=== PATIENT | male | born 2000 | race Caucasian/White ===

== ENCOUNTER 2023-02-02 10:47 | Emergency (ER) | payer OTHER, SELFPAY ==
--- NOTE | ~2023-02-02 | US_ITS ---
EXAMINATION: ULTRASOUND SCROTUM AND DOPPLER. US CLINICAL INFORMATION: Pain and swelling. COMPARISON: None available. TECHNIQUE: A sonogram of the scrotum was performed assessing saleh-scale appearance and color Doppler flow. Spectral Doppler analysis of the arterial and venous flow were performed in the testes bilaterally. FINDINGS: RIGHT: Right testicle measures 5.0 x 2.1 x 3.0 cm, volume 16.4 mL. No focal testicular parenchymal lesions are visualized. However there are small echogenic clustered calcifications in mid and lower pole. Spectral Doppler analysis of the arterial and venous flow is normal in the right testis. Right epididymal head is normal in size. No right hydrocele or varicocele is seen. Right epididymal Doppler flow is . LEFT: Left testicle measures 5.1 x 2.3 x 3.2 cm, volume 19.6 mL. No focal testicular parenchymal lesions are visualized. Spectral Doppler analysis of the arterial and venous flow is normal in the left testis. Left epididymal head is normal in size. No left hydrocele or varicocele is seen. Left epididymal Doppler flow is normal. There are several anechoic cysts. The largest anechoic cyst measures 0.3 x 0.3 x 0.3 cm. In left epididymal head. The largest measures US/US scrotum IMPRESSION: Microlithiasis right testes. Multiple small cyst left epididymal head with largest measuring 0.3 cm. Normal flow seen to both testes and epididymides on Doppler exam.
--- NOTE | ~2023-02-02 | US_ITS ---
EXAMINATION: ULTRASOUND SCROTUM AND DOPPLER. US CLINICAL INFORMATION: Pain and swelling. COMPARISON: None available. TECHNIQUE: A sonogram of the scrotum was performed assessing saleh-scale appearance and color Doppler flow. Spectral Doppler analysis of the arterial and venous flow were performed in the testes bilaterally. FINDINGS: RIGHT: Right testicle measures 5.0 x 2.1 x 3.0 cm, volume 16.4 mL. No focal testicular parenchymal lesions are visualized. However there are small echogenic clustered calcifications in mid and lower pole. Spectral Doppler analysis of the arterial and venous flow is normal in the right testis. Right epididymal head is normal in size. No right hydrocele or varicocele is seen. Right epididymal Doppler flow is . LEFT: Left testicle measures 5.1 x 2.3 x 3.2 cm, volume 19.6 mL. No focal testicular parenchymal lesions are visualized. Spectral Doppler analysis of the arterial and venous flow is normal in the left testis. Left epididymal head is normal in size. No left hydrocele or varicocele is seen. Left epididymal Doppler flow is normal. There are several anechoic cysts. The largest anechoic cyst measures 0.3 x 0.3 x 0.3 cm. In left epididymal head. The largest measures US/US scrotum doppler IMPRESSION: Microlithiasis right testes. Multiple small cyst left epididymal head with largest measuring 0.3 cm. Normal flow seen to both testes and epididymides on Doppler exam.
[2023-02-02 10:56] VITALS: BP 155/93; PULSE 92; RESP 20; TEMP 37.1; O2SAT 98; BMI 33.9
[2023-02-02 12:43] LABS: Appearance Urine Clear; Color Urine Yellow; Glucose Urine UA Negative (Negative); Leukocyte Esterase Urine Negative (Negative); Nitrite Urine Negative (Negative); PH 5.5 (5.0-9.0); Urine Blood Negative (Negative); Urine Ketones Negative (Negative); Urine Protein Negative (Neg-Trace)
--- NOTE | 2023-02-02 13:04 | ED_ITS ---
HPI - Male Genitourinary General Chief complaint: Urogenital-Male Stated complaint: Swollen Private Area Time Seen by Provider: 02/02/23 12:14 Source: patient Mode of arrival: ambulatory Limitations: no limitations History of Present Illness HPI Narrative: 22-year-old male with no significant pmhx presents to the ED today with a complaint of swelling to his left testicle x1 mo. Reports an episode of testicular swelling that occurred 1 mo ago. This lasted for approximately a day before resolving on its own. 4 days ago his left testicle began to swell again, this time it has not resolved. Denies redness or pain. Denies penile discharge or ulcers. Denies trauma or injury to the area. Patient is uncircumcised. Denies fever, chills, nausea, vomiting, abdominal pain, dysuria, hematuria. Admits he is sexually active. Denies concern for sexually transmitted infections. Related Data Allergies Allergy/AdvReac Type Severity Reaction Status Date / Time No Known Allergies Allergy Unverified 11/06/19 17:00 Review of Systems Review of Systems: Constitutional: No fever, chills, fatigue, night sweats, weight changes ENT/Mouth: No ear pain, hearing loss, nasal congestion, sinus pain, rhinorrhea, sore throat Eyes: No eye pain, swelling, redness, vision changes, discharge Cardio: No chest pain, palpitations, AMEZQUITA, orthopnea, peripheral edema Pulm: No SOB, cough, sputum, wheezing, dyspnea, hemoptysis GI: No nausea, vomiting, hematemesis, abdominal pain, diarrhea, constipation, hematochezia, melena : No irregular bleeding, dysuria, frequency, urgency, hesitancy, hematuria, flank pain, urinary flow changes, urinary incontinence or retention, + left testicle swelling MSK: No back pain, neck pain, joint pain, myalgias Skin: No lesions, rashes Neuro: No weakness, numbness, paresthesias, LOC, dizziness, headache All other systems reviewed and are negative. [facility] Past Medical History Attestation statement: The following information was validated with the patient. Source: old records reviewed and nursing notes reviewed Social History Social History Advance Directives: No Advance Directives Information Provided: No Physical Exam Vital Signs: Vital Signs: Last Vital Signs Temp 98.8 F 02/02/23 10:56 Pulse 92 02/02/23 10:56 Resp 20 02/02/23 10:56 BP 155/93 H 02/02/23 10:56 Pulse Ox 98 02/02/23 10:56 O2 Del Method Room Air 02/02/23 10:56 BMI result Body Mass Index 33.9 Vital signs stable, afebrile Const: General: cooperative, healthy appearing, comfortable, no acute distress, alert and awake Orientation/consciousness: patient oriented x3 Limitations: no limitations HEENT: Head: Yes normal to inspection Eyes: General: appearance normal, both eyes and all related structures Conjunctivae: conjunctivae normal Sclerae: sclerae normal Pupils: Equal, round and reactive pupils present Neck: Neck: Yes normal visual inspection and Yes no lymphadenopathy Resp: Effort & Inspection: normal respiratory effort Auscultation: clear to auscultation bilaterally Cardio: Rate: regular rate Rhythm: regular rhythm Peripheral pulses: radial pulses present, posterior tibial pulses present and dorsalis pedis present GI: Inspection: Yes normal to inspection Palpation (GI): Soft to palpation, nontender, no guarding and no hernias Auscultation: normal bowel sounds : Other: Sandra central processing technician in room to guide escort. + uncircumcised penis. Able to easily r etract foreskin. Meatus normal. Both testes present, normal testicular lie. No testicular swelling, redness. No testicular tenderness to palpation. No epididymal tenderness. normal cremasteric reflex. General: Yes no CVA tenderness Back/Spine/Pelvis: Back: no CVA tenderness Skin: General skin exam: no rashes or lesions noted Neuro: General: patient oriented x3, gait normal and moves all extremities Cranial nerves: Yes CN's II-XII intact bilaterally and Yes Equal, round and reactive pupils present Extrem: General: Yes normal to inspection and Yes full ROM Course Course Course Narrative: 1327-- UTI negative for infection. Scrotal ultrasound showing microlithiasis of the right testy along with multiple small cysts to the left epididymal head with largest measuring 0.3 cm. There is normal flow seen to both testes and epididymides. Will consult urologist, Dr. Monk for recommendation. 1337-- Discussed imaging results with Dr. Monk who recommends out patient follow up in 6-8 weeks. Informed patient of urine and ultra sound results. Informed him that he needs to follow up with urology in 1-2 months. He expresses understanding. Referral will be provided. Continues to deny pain. Patient has r emained stable throughout ED visit today. Discussed strict return precautions. All questions answered at this time. Patient is agreeable with disposition and stable for discharge. Medical Decision Making Medical Decision Making [facility] Narrative: 22-year-old male with no significant pmhx presents to the ED today with a complaint of swelling to his left testicle x1 mo. VSS. Afebrile. On exam, uncircumcised penis. Able to easily retract foreskin. Meatus normal. Both testes present, normal testicular lie. No testicular swelling, redness. No testicular tenderness to palpation. No epididymal tenderness. Normal cremasteric reflex. Abd soft, nt/nd. No palable hernia. No LAD. 2+ femoral pulses. Clinical concern for std vs uti vs epididymitis vs hydrocele. Unlikely varicocele, orchitis, testicular torsion, carcinoma. plan for scrotal US, UA and re-evaluation. Differential Diagnosis Differential Diagnoses: The differential diagnosis associated with the presentation includes as above. Admission/Observation Not indicated. Consult Healthcare Provider Management of the patient was discussed with: Manager Of Tires Sales (urologist, Dr. Monk) Lab Data [facility] Lab Attestation statement: I reviewed the patient's lab results. as above. Labs: Lab Results 02/02/23 Range/Units 12:20 Urine Color Yellow Urine Appearance Clear Urine pH 5.5 (5.0-9.0) Ur Specific [place] 1.010 (1.005-1.025) Urine Protein Negative (Neg-Trace) mg/dL Urine Glucose (UA) Negative (Negative) mg/dL Urine Ketones Negative (Negative) mg/dL Urine Blood Negative (Negative) Urine Nitrite Negative (Negative) Ur Leukocyte Esterase Negative (Negative) Chlam trachomat DNA PCR NOT DETECTED (Not Detect.) N.gonorrhoeae DNA (PCR) NOT DETECTED (Not Detect.) Independent Interpretation I performed an independent interpretation of an: Ultrasound Interpretation: US scrotum with normal flow to both testes, agree with radiologist's interpretation. Radiology Impression Discussion of test interpretation with radiology: I have reviewed the radiologist's reading. Radiologist Impression: US scrotum IMPRESSION: Microlithiasis right testes. Multiple small cyst left epididymal head with largest measuring 0.3 cm Normal flow seen to both testes and epididymides on Doppler exam. External Record Review External record reviewed: Inpatient record Critical Care Time Critical Care Time Critical Care Time: No Discharge Plan Discharge Clinical Impression: Testicular microlithiasis, Cyst of epididymis Patient Disposition: Home, Self-Care Instructions: Testicle Pain (ED), Scrotal Pain (ED) Additional Instructions: Your urine was negative for infection. You tested negative for gonorrhea and chlamydia. The ultrasound of your testicles shows small calcium deposits within the right testes, known as microlithiasis. It also shows small cysts measuring approximately 0.3 cm on the epididymis within the left testicle. Recommendation is to wear tight briefs to compress the testicles and help with swelling. You have also been provided with a referral to Urology to follow up with regarding your ultrasound findings. CALL THEM TO MAKE AN APPOINTMENT. THEY WILL NOT CALL YOU. If symptoms persist or worsen, please return to the emergency department. In the case of an emergency call 911. Referrals: [facility] [Provider Group] - 5 days Stand Alone Forms: Work/School Release Interventions: ED Discharge Assessment Last Done: 02/02/23 14:32 Discharge Date/Time: 02/02/23 14:32
[2023-02-02 14:00] LABS: CT PCR NOT DETECTED (Not Detect.); NG PCR NOT DETECTED (Not Detect.)
== END 2023-02-02 14:32 | disposition home or self-care (01) ==
PROVIDERS: Physician Assistant Medical; Emergency Provider Emergency Medicine Emergency Medical Services
DX: N50.3 Cyst of epididymis (principal); N50.812 Left testicular pain; N50.89 Other specified disorders of the male genital organs; R10.2 Pelvic and perineal pain; Z79.899 Other long term (current) drug therapy
CPT/HCPCS: 0353U; 76870; 81003; 93975; 99282; 99284

== ENCOUNTER 2023-03-23 15:14 | Outpatient (AMB) | payer OTHER, SELFPAY ==
--- NOTE | 2023-03-23 15:16 | A.OFFVIS_ITS ---
Intake Intake Visit Reasons: epididymal cyst Intake Note: New Patient presents for initial visit for ER follow up Epididymal Cyst Urology Medications: none Blood Thinner: none Business Account Specialist Required: No Accompanied by: Self / Same As Patient Allergies No Known Allergies Allergy (Unverified 03/23/23 15:20) HPI HPI Comments History of Present Illness Details Joaquin is a very pleasant 22-year-old male patient. He presents to the office today as a new patient for epididymal cysts. In discussion with the patient today he reports feeling an abnormal mass within the left side of his scrotum that has been intermittent over the last few months. He reports currently he does not feel this abnormality anymore and was going to cancel the appointment but wanted to make sure everything was okay. In review of patient's chart it appears scrotal ultrasound was ordered and performed. These results were reviewed with the patient today. Microlithiasis right testes. Multiple small cyst left epididymal head with largest measuring 0.3 cm. Normal flow seen to both testes and epididymides on Doppler exam. Patient declines physical assessment today as he feels abnormality has since subsided. He denies pain, trauma, or injury to the area. He endorses being sexually active however, denies concern for sexually transmitted infections. Discussed at length potential causes for multiple small cyst noted to the epididymal head on imaging. When asked he currently denies any bothersome urinary issues or concerns. He denies urinary urgency, urinary frequency, incontinence, nocturia, hematuria, dysuria, foul smelling urine, changes to urinary stream, flank pain, fever, and or chills. He is happy with his current voiding parameters. Review of Systems Const All systems reviewed & are unremarkable except as noted in HPI and below Physical Exam Const General: cooperative, healthy appearing, comfortable, no acute distress, well developed, alert and awake Orientation/consciousness: patient oriented x3 Limitations: no limitations HEENT Head: Yes normal to inspection, Yes normocephalic and Yes atraumatic Ears: hearing grossly normal bilaterally Eyes General: appearance normal, both eyes and all related structures Neck Neck: Yes normal visual inspection and Yes trachea midline Chest Chest palpation & inspection: normal inspection of the chest Resp Effort & Inspection: normal respiratory effort and able to speak in complete sentences Cardio Rate: regular rate GI Inspection: Yes normal to inspection General: Yes deferred Skin General skin exam: no rashes or lesions noted Neuro General: patient oriented x3 Extrem General: Yes normal to inspection Psych Appearance: grossly normal and well kempt Mental Status: mental status grossly normal Speech and movement: Normal speech and movement present and Clear speech present Affect: normal affect Attitude: cooperative Thought process: Normal thought process present Thought content: Normal thought content present Insight: Fair insight present (Psych) Judgement: Fair judgement present (Psych) Results AMB Urinalysis, Automated UA Leukoctes 0 Olaf/uL Last Edit by [employer] on 03/23/23 15:47 UA Nitrite Negative Last Edit by Everlaw on 03/23/23 15:47 UA Urobilinogen 0.2 mg/dL Last Edit by Everlaw on 03/23/23 15:47 UA Protein 0 mg/dL Last Edit by Everlaw on 03/23/23 15:47 UA pH 6.0 Last Edit by [employer] on 03/23/23 15:47 UA Blood 0 Humberto/uL Last Edit by Everlaw on 03/23/23 15:47 UA Specific [place] 1.020 Last Edit by Everlaw on 03/23/23 15:47 UA Ketone Negative Last Edit by Everlaw on 03/23/23 15:47 UA Bilirubin 0 mg/dL Last Edit by Everlaw on 03/23/23 15:47 UA Glucose 0 mg/dL Last Edit by [employer] on 03/23/23 15:47 Results Reviewed Results Reviewed: Laboratory Last Values Urine pH (Auto) 6.0 03/23/23 15:21 Specific [place] (Auto) 1.020 03/23/23 15:21 Urine Protein (Auto) 0 mg/dL 03/23/23 15:21 Glucose (UA)(Auto) 0 mg/dL 03/23/23 15:21 Urine Ketones (Auto) Negative 03/23/23 15:21 Urine Blood (Auto) 0 Humberto/uL 03/23/23 15:21 Urine Nitrite (Auto) Negative 03/23/23 15:21 Urine Bilirubin (Auto) 0 mg/dL 03/23/23 15:21 Urine Urobilinogen (Auto) 0.2 mg/dL 03/23/23 15:21 Leukocyte Esterase (Auto) 0 Olaf/uL 03/23/23 15:21 Date of Service: 02/02/23 EXAMINATION: ULTRASOUND SCROTUM AND DOPPLER. FINDINGS: RIGHT: Right testicle measures 5.0 x 2.1 x 3.0 cm, volume 16.4 mL. No focal testicular parenchymal lesions are visualized. However there are small echogenic clustered calcifications in mid and lower pole. Spectral Doppler analysis of the arterial and venous flow is normal in the right testis. Right epididymal head is normal in size. No right hydrocele or varicocele is seen. Right epididymal Doppler flow is . LEFT: Left testicle measures 5.1 x 2.3 x 3.2 cm, volume 19.6 mL. No focal testicular parenchymal lesions are visualized. Spectral Doppler analysis of the arterial and venous flow is normal in the left testis. Left epididymal head is normal in size. No left hydrocele or varicocele is seen. Left epididymal Doppler flow is normal. There are several anechoic cysts. The largest anechoic cyst measures 0.3 x 0.3 x 0.3 cm. In left epididymal head. The largest measures IMPRESSION: Microlithiasis right testes. Multiple small cyst left epididymal head with largest measuring 0.3 cm. Normal flow seen to both testes and epididymides on Doppler exam. Assessment & Plan Assessment & Plan (1) Cyst of epididymis: Code(s): N50.3 - Cyst of epididymis Plan In office urinalysis results reviewed with the patient today; as noted above. Recent scrotal ultrasound results reviewed with the patient today. Reassurance provided. Discussed at length potential causes of epididymal head cysts. Patient denies any bothersome urinary issues or concerns. Will obtain scrotal ultrasound in 6 months for surveillance monitoring. Follow-up in 6 months with imaging to be completed prior; or sooner with any issues, concerns, and or questions. Orders: Orders AMB Urinalysis Automated Today Z13.9 - Encounter for screening, unspecified US scrotum 6 Months N50.3 - Cyst of epididymis Patient Instructions: The patient had an opportunity to ask questions regarding the treatment plan. All questions were answered. Physical exam, labs, and imaging were discussed and reviewed in detail. As well as risks, benefits, and discussion of treatment choices. No major barriers to understanding were identified. The patient expressed understanding and agreement with the above treatment plan. The patient was made aware they should contact our office by phone for worsening of their current condition, the appearance of new symptoms, or with any questions or concerns. Compliance is encouraged with any medications and follow up testing that is ordered. It is a privilege to be allowed the opportunity to participate in? your urological care.? Again, if you have any questions or concerns If you have any questions or concerns please do not hesitate to contact me. The office is [phone]. This note is constructed using voice recognition software. While every effort has been made to ensure accuracy physician allergist immunologist errors may have been included. Yours sincerely, KENNY Rodriguez Coding Level of Care Code New Pt Level 3 (47001) Diagnoses Cyst of epididymis N50.3
== END 2023-03-23 15:58 | disposition home or self-care (01) ==
PROVIDERS: Visit Provider Nurse Practitioner Family
DX: N50.3 Cyst of epididymis (principal)
CPT/HCPCS: 99203

== ENCOUNTER → 2023-03-23 15:14 | Outpatient (BNVA) | payer OTHER, SELFPAY | PROVIDERS: Visit Provider Nurse Practitioner Family | DX: N50.3 Cyst of epididymis (principal) | CPT/HCPCS: 81003 ==

== ENCOUNTER 2023-09-10 12:29 | Outpatient (REF) | payer OTHER, SELFPAY ==
--- NOTE | ~2023-09-10 | US_ITS ---
EXAMINATION: US SCROTUM CLINICAL INFORMATION: Cyst of epididymis. COMPARISON: Ultrasound scrotum 02/02/2023. TECHNIQUE: A sonogram of the scrotum was performed assessing saleh-scale appearance and color Doppler flow. Spectral Doppler analysis of the arterial and venous flow were performed in the testes bilaterally. FINDINGS: RIGHT: Right testicle measures 4.9 x 2.1 x 3.2 cm, volume 17.4 mL. Few scattered calcifications. Spectral Doppler analysis of the arterial and venous flow is normal in the right testis. Right epididymal head is normal in size. Small epididymal head cyst measuring 0.3 x 0.3 x 0.4 cm. No right hydrocele or varicocele is seen. Right epididymal Doppler flow is normal. LEFT: Left testicle measures 4.8 x 2.6 x 2.9 cm, volume 19.2 mL. Spectral Doppler analysis of the arterial and venous flow is normal in the left testis. Left epididymal head is normal in size. Small epididymal head cyst measures 0.3 x 0.2 x 0.2 cm. Small hydrocele the lower pole with septation. Left epididymal Doppler flow is normal. US/US scrotum IMPRESSION: 1. No evidence of testicular torsion. 2. Stable size of bilateral epididymal head cyst measuring up to 0.3 cm. 3. Stable microliths of right testicle. 4. New small hydrocele on the left lower pole.
== END 2023-09-10 12:30 | disposition home or self-care (01) ==
LOC: HO.US 12:29
PROVIDERS: Visit Provider Nurse Practitioner Family
DX: N50.3 Cyst of epididymis (principal)
CPT/HCPCS: 76870

== ENCOUNTER 2023-09-21 13:27 | Outpatient (AMB) | payer OTHER, SELFPAY ==
--- NOTE | 2023-09-21 13:31 | MHC.OFFVIS ---
Intake Visit Reasons: 6m/US(set) Intake Note: Patient presents to the office today for a 6m/US Urology Medications: none Blood Thinner: none Tenter Feeder Required: No Accompanied by: Self / Same As Patient Allergies No Known Allergies Allergy (Unverified 09/21/23 13:31) HPI Comments Details: Joaquin is a very pleasant 22-year-old male patient. He presents to the office today for follow-up. Of note, patient was seen approximately 6 months ago as a new patient for epididymal cysts at which time plan was to continue with surveillance monitoring of epididymal cysts. Recent scrotal ultrasound results reviewed with the patient today. No evidence of testicular torsion, stable size of bilateral epididymal head cysts measuring up to 0.3 cm. Stable microliths of right testicle, new small hydrocele of the left lower pole. In discussion with the patient today he reports to be doing and feeling well. He reports performing self exams in does not feel there has been any changes since his last office visit here. Patient again declines physical assessment today. Offered male provider however he continues to decline. He discusses feeling no bothersome urinary issues or concerns. He denies pain, trauma, or injury to the area. He endorses being sexually active however, denies concern for sexually transmitted infections. Discussed at length potential causes for cysts in complex hydroceles. He denies urinary urgency, urinary frequency, incontinence, nocturia, hematuria, dysuria, foul smelling urine, changes to urinary stream, flank pain, fever, and or chills. He is happy with his current voiding parameters. Review of Systems Const All systems reviewed & are unremarkable except as noted in HPI and below Physical Exam Const General: cooperative, healthy appearing, comfortable, no acute distress, well developed, alert and awake Orientation/consciousness: patient oriented x3 Limitations: no limitations HEENT Head: Yes normal to inspection, Yes normocephalic and Yes atraumatic Ears: hearing grossly normal bilaterally Eyes General: appearance normal, both eyes and all related structures Neck Neck: Yes normal visual inspection and Yes trachea midline Chest Chest palpation & inspection: normal inspection of the chest Resp Effort & Inspection: normal respiratory effort and able to speak in complete sentences Cardio Rate: regular rate GI Inspection: Yes normal to inspection General: Yes deferred Skin General skin exam: no rashes or lesions noted Neuro General: patient oriented x3 Extrem General: Yes normal to inspection Psych Appearance: grossly normal and well kempt Mental Status: mental status grossly normal Speech and movement: Normal speech and movement present and Clear speech present Affect: normal affect Attitude: cooperative Thought process: Normal thought process present Thought content: Normal thought content present Insight: Fair insight present (Psych) Judgement: Fair judgement present (Psych) Results Reviewed Results Reviewed: Date of Service: 09/10/23 EXAMINATION: US SCROTUM FINDINGS: RIGHT: Right testicle measures 4.9 x 2.1 x 3.2 cm, volume 17.4 mL. Few scattered calcifications. Spectral Doppler analysis of the arterial and venous flow is normal in the right testis. Right epididymal head is normal in size. Small epididymal head cyst measuring 0.3 x 0.3 x 0.4 cm. No right hydrocele or varicocele is seen. Right epididymal Doppler flow is normal. LEFT: Left testicle measures 4.8 x 2.6 x 2.9 cm, volume 19.2 mL. Spectral Doppler analysis of the arterial and venous flow is normal in the left testis. Left epididymal head is normal in size. Small epididymal head cyst measures 0.3 x 0.2 x 0.2 cm. Small hydrocele the lower pole with septation. Left epididymal Doppler flow is normal. IMPRESSION: 1. No evidence of testicular torsion. 2. Stable size of bilateral epididymal head cyst measuring up to 0.3 cm. 3. Stable microliths of right testicle. 4. New small hydrocele on the left lower pole. Assessment & Plan Assessment & Plan (1) Cyst of epididymis: Code(s): N50.3 - Cyst of epididymis Category: Medical Plan Recent scrotal ultrasound results reviewed with the patient today. Discussed at length potential causes of epididymal head cysts and complex hydroceles. Patient denies any bothersome urinary issues or concerns. Patient refuses assessment; male provider offered however continues to decline. Discussed surveillance monitoring however patient declines as he does not feel this is necessary. Discussed worsening symptoms. Follow-up as needed; per patient request. Patient Instructions: The patient had an opportunity to ask questions regarding the treatment plan. All questions were answered. Physical exam, labs, and imaging were discussed and reviewed in detail. As well as risks, benefits, and discussion of treatment choices. No major barriers to understanding were identified. The patient expressed understanding and agreement with the above treatment plan. The patient was made aware they should contact our office by phone for worsening of their current condition, the appearance of new symptoms, or with any questions or concerns. Compliance is encouraged with any medications and follow up testing that is ordered. It is a privilege to be allowed the opportunity to participate in? your urological care.? Again, if you have any questions or concerns If you have any questions or concerns please do not hesitate to contact me. The office is [phone]. This note is constructed using voice recognition software. While every effort has been made to ensure accuracy seismograph operator errors may have been included. Yours sincerely, KENNY Rodriguez Coding Level of Care Code Est Pt Level 3 (22339) Diagnoses Cyst of epididymis N50.3
== END 2023-09-21 13:44 | disposition home or self-care (01) ==
PROVIDERS: Visit Provider Nurse Practitioner Family
DX: N50.3 Cyst of epididymis (principal)
CPT/HCPCS: 99213

== ENCOUNTER → 2023-09-21 13:27 | Outpatient (BNVA) | payer OTHER, SELFPAY | PROVIDERS: Visit Provider Nurse Practitioner Family ==

== ENCOUNTER 2024-11-27 09:33 | Outpatient (AMB) | payer BC, SELFPAY ==
--- NOTE | 2024-11-27 08:35 | MHC.PC.OV ---
Vital Signs 11/27/24 09:39 Height 5 ft 11 in Weight 254 lb BMI 35.4 BP 116/64 Blood Pressure Location Lt brachial Position Sitting Respiration 16 Pulse 59 Pulse Source Pulse Oximeter Temp 98.6 F Temp Source Temporal Artery Scan Pulse Oximetry (%) 96 Oxygen Delivery Method Room Air Intake Visit Reasons: New PT-Pak [facility] 11/24/24 Intake Note: CP, Palp and shoulder pain. Building Consultant Required: No Accompanied by: Self / Same As Patient Allergies No Known Allergies Allergy (Verified 11/27/24 08:36) Medication List - Last Reconciled 11/27/24 by Florin Bruce MD No Known Home Meds Tobacco use date assessed: 11/27/24 Dental Screening Dental Screen Date: 11/27/24 Did you have a dental visit in the last 12 months?: Yes Did you have a dental problem in the last 6 months where you did not have access to dental care?: No Was dental information given to patient?: Patient has dentist HPI HPI Comments History of Present Illness Details The patient is a 24-year-old male presenting with chest and shoulder pain, alongside experiencing palpitations. The symptoms began on the morning of the visit and persisted throughout the day. The patient initially experienced constant pain, which later became intermittent over the last few days. The pain is described to have started above the upper part of the chest, radiating towards the left shoulder and extending to the shoulder joint and upper arm. The severity was rated by the patient as a 3 out of 10, with no known factors exacerbating or alleviating the pain. Onset was approximately four days ago on a Sunday. There has been no significant shortness of breath, headaches, or loss of consciousness reported. The patient has a known history of herpes gladiatorum, contracted during high school wrestling, and is seeking medication for flare-ups, which have increased in frequency recently. Medical History: - Herpes gladiatorum with biannual flare-ups - Epididymal cyst, stable in size - Anxiety, episodically Surgical History: - NONE Medications: - NONE Family History: - Father: Diabetes - Paternal Grandfather: Bladder area tumor - No immediate family history of heart disease or cancer Diagnostic Results: - Emergency room reports: Negative for myocardial infarction Social History: - Smoked for six months, quit five years ago - Consumes 4-6 alcoholic beverages one to two days a week - Stable housing, moving in with girlfriend - No illicit drug use [facility] Medical History (Updated 11/27/24 @ 10:05 by Florin Bruce MD) Alcohol abuse Chest pain Herpes gladiatorum Cyst of epididymis Social History Housing: Apartment Patient Tobacco Use Status: Former Tobacco user Years Smoked: less than a year e-Cigarette/Vaping Use: Former Use Frequency of e-Cigarette/Vaping Use: 3 years service: No Current occupational status: employed Current occupation: [employer] Questionnaire PHQ-9 Over the last 2 weeks, how often have you been bothered by any of the following problems? 1. Little interest or pleasure in doing things: not at all 2. Feeling down, depressed, or hopeless: not at all 3. Trouble falling or staying asleep, or sleeping too much: not at all 4. Feeling tired or having little energy: not at all 5. Poor appetite or overeating: not at all 6. Feeling bad about yourself - or that you are a failure or have let yourself or your family down: not at all 7. Trouble concentrating on things, such as reading the newspaper or watching television: not at all 8. Moving or speaking so slowly that other people could have noticed. Or the opposite - being so fidgety or restless that you have been moving around a lot more than usual: not at all 9. Thoughts that you would be better off or of hurting yourself in some way: not at all Total score: 0 Depression Screening Interpretation: Negative Depression Screening Done: Yes 52802 - PHQ-9 Billing: Yes Source: Developed by Drs. Efren Webb, Lori Duggan, Guero Kelly and colleagues, with an educational eber from [employer]. Thrive Questionnaire Date Thrive assessed: 11/27/24 I am a: Patient What is your living situation today?: I have a steady place to live Within the past 12 months, did the food you bought not last and you didn't have the money to get more?: Never true Within the past 12 months, did you worry whether your food would run out before you got money to buy more?: Never true Do you have trouble paying for medicines?: No Do you have trouble getting transportation to medical appointments?: No Do you have trouble paying your heating and electricity bill?: No Do you have trouble taking care of your child, family member or friend?: No Do you have trouble with day-to-day activities such as bathing, preparing meals, shopping, managing finances, etc.?: No Are you currently unemployed and looking for a job?: No Are you interested in more education?: No THRIVE Score: 0 AUDIT C Alcohol Use Questionnaire (AUDIT-C) 1. How often do you have a drink containing alcohol?: 2-4 times a month 2. How many drinks containing alcohol do you have on a typical day when you are drinking?: 5 or 6 3. How often do you have six or more drinks on one occasion?: Weekly Total Score: 7 Score Reviewed/Action Taken: Yes CHRISTA-7 AMB Questionnaire CHRISTA-7 Date CHRISTA - 7 assessed: 11/27/24 Feeling nervous, anxious, or on edge: 1 = Several days Not being able to stop or control worryin = Not at all Worrying too much about different things: 1 = Several days Trouble relaxin = Not at all Being so restless that it is hard to sit still: 0 = Not at all Becoming easily annoyed or irritable: 0 = Not at all Feeling afraid as if something awful might happen: 1 = Several days Total CHRISTA-7 score (0-4 normal; 5-9 mild; 10-14 moderate; 15-21 severe): 3 Source: Developed by Drs. Efren Webb, Lori Duggan, Guero Kelly and colleagues, with an educational eber from [employer]. CHRISTA-7 Assessment Billing CHRISTA-7 Assessment Tool: CHRISTA-7 Assessment 60548 Review of Systems Const Details: - Cardiovascular: Reports chest pain and palpitations - Respiratory: Denies shortness of breath - Neurological: Denies headaches, loss of consciousness - Psychological: Denies depression; acknowledges episodic anxiety - Gastrointestinal: Denies nausea, vomiting, diarrhea - Genitourinary: Denies changes in urinary stream All systems reviewed & are unremarkable except as reviewed in HPI and above Physical exam (Primary Care) Vital Signs: Last Vital Signs Temp 98.6 F 11/27/24 09:39 Pulse 59 11/27/24 09:39 Resp 16 10/09/25 09:39 BP 116/64 11/27/24 09:39 Pulse Ox 96 11/27/24 09:39 Oxygen Delivery Method Room Air 11/27/24 09:39 BMI result Body Mass Index 35.4 Tobacco/Smoking Status: Tobacco use Status Tobacco use date assessed 11/27/24 11/27/24 08:36 Patient Tobacco Use Status Former Tobacco user 11/27/24 09:42 e-Cigarette/Vaping Use Former Use 11/27/24 09:42 PHQ-9: PHQ-9 Score PHQ-9: Total score 0 11/27/24 09:50 Depression Screening Interpretation: Negative Thrive Assessment: Date of Thrive Assessment Date Thrive assessed 11/27/24 11/27/24 09:50 Const Other: General: Alert and oriented, Well nourished, No acute distress. Eye: Pupils are equal, round and reactive to light, Intact accommodation, Extraocular movements are intact, Normal conjunctiva, Vision unchanged. HENT: Normocephalic, Atraumatic, Tympanic membranes are clear, Normal hearing, Oral mucosa is moist, No pharyngeal erythema, Ear canals patent. Respiratory: Lungs CTA bilaterally, No wheeze, Respirations are non-labored. Cardiovascular: Regular rate, Regular rhythm, S1 auscultated, S2 auscultated, No murmur, Good pulses equal in all extremities, Normal peripheral perfusion, No edema. Gastrointestinal: Soft, Non-tender, Non-distended, Normal bowel sounds, No organomegaly. Musculoskeletal: Normal range of motion, Normal strength, No swelling, No deformity, Normal gait. Tenderness on pressure along sternum Integumentary: Warm, Dry, [place], Intact. Neurologic: Alert, Oriented, Normal sensory, Normal motor function, No focal defects, Cranial Nerves II-XII are grossly intact, Normal deep tendon reflexes. Psychiatric: Cooperative, Appropriate mood & affect, Normal judgment, Appears anxious. Coding Level of Care Code New Pt Level 4 (76037) Diagnoses Chest pain, unspecified type R07.9 Chest pain type: unspecified Palpitation R00.2 Cyst of epididymis N50.3 Herpes gladiatorum B00.89 Alcohol abuse F10.10 Additional Codes CHRISTA-7 Assessment Billing - CHRISTA-7 Assessment Tool: CHRISTA-7 Assessment 59887 ([id number]) PHQ-9 - 72003 - PHQ-9 Billing: Yes ([id number]) Assessment & Plan Assessment & Plan (1) Chest pain: Comment: - Suspected costochondritis based on location and nature of pain with pain on palpation around sternum - Negative cardiac work up at Hospital per patient - EKG Completed in Clinic - Unremarkable except for sinus bradycardia (given muscular nature of patient) - Recommend ibuprofen to reduce inflammation and alleviate pain. Will also review troponins Code(s): R07.9 - Chest pain, unspecified Category: Medical Qualifiers: Chest pain type: unspecified Qualified Code(s): R07.9 - Chest pain, unspecified (2) Palpitation: Code(s): R00.2 - Palpitations Plan: - Likely related to anxiety or benign nature; reassured patient after EKG evaluation. - Monitor symptoms and patient is advised to follow up if there is an increase in severity or new symptoms arise. (3) Cyst of epididymis: Comment: - Continue monitoring for changes in size or symptoms. - Follow up with Urology Code(s): N50.3 - Cyst of epididymis Category: Medical (4) Herpes gladiatorum: Comment: - Initiate Valacyclovir 1g twice daily for acute management. - Discussed lack of necessity for prophylactic antiviral in the absence of active outbreak Code(s): B00.89 - Other herpesviral infection Category: Medical (5) Alcohol abuse: Comment: - Advised moderation due to current intake being over the safe guidelines. - Monitor for any complications and review progress in subsequent visits. Code(s): F10.10 - Alcohol abuse, uncomplicated Category: Social Hx Plan: Health Maintenance: - Discussed moderation in alcohol consumption. - Recommended ibuprofen for inflammation-related issues. - Discussed stress management strategies. Patient was informed and verbally consented to the use of an ambient scribe for clinic note documentation during this visit. Plan During this visit, I discussed with the patient the likely diagnosis of costochondritis, understanding the inflammation of the costal cartilages is likely leading to chest discomfort. I reassured the patient of the findings suggesting a non-cardiac origin of the pain, emphasizing that further EKG evaluation and labs, including troponin, would provide additional peace of mind for the patient anxious about potential cardiac issues. A comprehensive management plan was then developed addressing each of the patient?s concerns from herpes outbreaks to the potential overuse of alcohol, with emphasis placed on modifications for both immediate and preventative care. The risks and benefits of each intervention, such as the use of ibuprofen for inflammation and Valacyclovir for herpes management, were explained thoroughly. Follow-up evaluations were advised upon unexpected progression or worsening of symptoms. Orders: Orders Hemoglobin A1c Today Z76.89 - Persons encountering health services in other specified circumstances Hepatitis A,B,C Profile Today Z76.89 - Persons encountering health services in other specified circumstances HIV Ab/Ag Today Z76.89 - Persons encountering health services in other specified circumstances TSH reflex Free T4 Today Z76.89 - Persons encountering health services in other specified circumstances Vitamin D 25-OH Total Today Z76.89 - Persons encountering health services in other specified circumstances Syphilis Screen Today Z76.89 - Persons encountering health services in other specified circumstances Complete Blood Count Auto Diff Today Z76.89 - Persons encountering health services in other specified circumstances Comprehensive Met. Panel Today Z76.89 - Persons encountering health services in other specified circumstances Lipid Panel Today Z76.89 - Persons encountering health services in other specified circumstances Troponin-I High Sensitivity Today R07.9 - Chest pain, unspecified Medications: New valacyclovir 1,000 mg PO BID 20 tabs 8RF 10 days B00.89 - Other herpesviral infection Patient Instructions: - Take ibuprofen as needed for chest pain. - Begin Valacyclovir for herpes flare-ups. - Reduce alcohol intake, particularly on weekends. - Practice stress management techniques to alleviate anxiety symptoms. - Complete prescribed blood work and EKG. - Monitor the cyst for any changes.
[2024-11-27 09:39] VITALS: BP 116/64; PULSE 59; RESP 16; TEMP 37; O2SAT 96; BMI 35.4
== END 2024-11-27 10:05 | disposition home or self-care (01) ==
LOC: HO.HMCHD 09:34
PROVIDERS: PCP Student in an Organized Health Care Education/Training Program; Visit Provider Student in an Organized Health Care Education/Training Program
DX: R07.9 Chest pain, unspecified (principal); R00.2 Palpitations; N50.3 Cyst of epididymis; B00.89 Other herpesviral infection; F10.10 Alcohol abuse, uncomplicated

== ENCOUNTER → 2024-11-27 09:33 | Outpatient (BNVA) | payer BC, SELFPAY | PROVIDERS: PCP Student in an Organized Health Care Education/Training Program; Visit Provider Student in an Organized Health Care Education/Training Program | DX: R07.9 Chest pain, unspecified (principal); R00.2 Palpitations; N50.3 Cyst of epididymis; B00.89 Other herpesviral infection; F10.10 Alcohol abuse, uncomplicated; Z13.31 Encounter for screening for depression; Z13.39 Encounter for screening examination for other mental health and behavioral disorders | CPT/HCPCS: 96127 ==

== ENCOUNTER 2024-11-27 10:07 | Outpatient (REF) | payer BC, SELFPAY ==
[2024-11-27 10:40] LABS: MANUAL DIFF FLAG NO
[2024-11-27 10:47] LABS: Hematocrit 44.5 % (42.0-52.0); Hemoglobin 15.1 g/dl (14.0-18.0); Imm Gran Abs Auto 0.01 X10*3/uL (0.00-0.03); Imm Gran Pct Auto 0.2 % (0.0-0.4); Lymphocytes Absolute Auto 1.7 X10*3/uL (1.2-4.9); Mean Corpuscular HGB Conc 33.9 g/dl (31.0-36.0); Mean Corpuscular Hemoglobin 30.1 pg (27.0-33.0); Mean Corpuscular Volume 88.8 fL (80.0-98.0); NRBC Abs Auto 0.000 X10*3/uL (0.0-0.012); NRBC Pct Auto 0.0 /100WBC (0.0-0.2); Platelet Count 197 X10*3/uL (160-400); Red Blood Count 5.01 X10*6/uL (4.60-5.80); White Blood Count 5.2 X10*3/uL (4.8-10.8)
[2024-11-27 10:55] LABS: Hemoglobin A1C 138.8593 umol/L; Total Hemoglobin (HGBA1C) 3822.9698 umol/L
[2024-11-27 11:25] LABS: Troponin-I High Sensitivity < 2.7 ng/L (<3.5-35.0)
[2024-11-27 11:26] LABS: Alanine Aminotransferase 60 U/L (0-40); Albumin Level 5.1 g/dL (3.5-5.0); Alkaline Phosphatase 56 U/L (39-117); Anion Gap 11 (12-20); Aspartate Amino Transferase 36 U/L (5-37); Blood Urea Nitrogen 12 mg/dL (9-16); Calcium 9.6 mg/dL (8.4-10.2); Carbon Dioxide 27 mmol/L (22-29); Chloride 107 mmol/L (96-108); Cholesterol 184 mg/dL (<200); Estimated Glomerular Filt Rate > 60; HDL Cholesterol 43 mg/dL (>40); Potassium 3.9 mmol/L (3.3-5.1); Sodium 141 mmol/L (135-145); Total Protein 7.8 g/dL (6.5-8.0); Triglycerides 82 mg/dL (<150)
[2024-11-27 11:42] LABS: HBS Num1 0.46 mIU/mL (0-7.99); HBc Num1 0.07 S/CO (0.00-0.79); HBsAGNum1 0.38 S/CO (0.00-0.99); HIV Num 1 0.08 S/CO (0.00-0.99); Hepatitis A Antibody IgM 0.24 Index (0-0.79); Hepatitis B Surface Antigen Negative (Negative); Syphilis Screen Nonreactive (Nonreactive); ~HepC Num1 0.10 S/CO (0.00-0.79); ~Hepatitis A Antibody IgM Nonreactive (Nonreactive); ~Hepatitis B Surface Antibody NONREACTIVE (Nonreactive); ~Hepatitis C Antibody Nonreactive (Nonreactive)
== END 2024-11-27 10:08 | disposition home or self-care (01) ==
LOC: HO.10HDL 10:07
PROVIDERS: Visit Provider Student in an Organized Health Care Education/Training Program
DX: Z13.1 Encounter for screening for diabetes mellitus (principal); R07.9 Chest pain, unspecified; Z76.89 Persons encountering health services in other specified circumstances
CPT/HCPCS: 36415; 80053; 80061; 82306; 83036; 84443; 84484; 85025; 86704; 86706; 86709; 86780; 86803; 87340; 87389

== ENCOUNTER 2024-12-05 15:47 | Emergency (ER) | payer BC, SELFPAY ==
--- NOTE | ~2024-12-05 | XR_ITS ---
EXAMINATION: XR CHEST CLINICAL INFORMATION: chest pain COMPARISON: None available. TECHNIQUE: Frontal view of the chest was obtained. FINDINGS: The cardiac, hilar, and mediastinal contours are normal. The lungs are clear bilaterally. No pneumothorax or effusion. No focal osseous or soft tissue abnormality. XR/XR chest 1V IMPRESSION: Normal chest. Electronically signed by: Jon Howard MD 12/05/2024 04:58 PM EDT RP
--- NOTE | ~2024-12-05 | XR_ITS ---
EXAMINATION: XR SHOULDER, LEFT CLINICAL INFORMATION: left shoulder pain COMPARISON: None available. TECHNIQUE: AP external rotation, Grashey, scapular Y, and axillary views of the left shoulder. FINDINGS: Normal bone mineralization. No fracture, dislocation, or suspicious bone lesion. Normal alignment. The glenohumeral joint is normal. The AC joint is normal. There is a type II acromion. No undersurface spurring. The subacromial space is preserved. Remainder of the soft tissue and bony structures appear normal. XR/XR shoulder LT min 2V IMPRESSION: Normal left shoulder. Electronically signed by: Jon Howard MD 12/05/2024 04:58 PM EDT
[2024-12-05 16:15] VITALS: BP 153/79; PULSE 78; RESP 18; TEMP 36.6; O2SAT 97; BMI 35.4
--- NOTE | 2024-12-05 16:17 | ECG_ITS ---
Test Reason : L SHOULDER PAIN Blood Pressure : */* mmHG Vent. Rate : 83 BPM Atrial Rate : 83 BPM P-R Int : 154 ms QRS Dur : 86 ms QT Int : 354 ms P-R-T Axes : 30 0 46 degrees QTcB Int : 415 ms Normal sinus rhythm Nonspecific T wave abnormality Abnormal ECG When compared with ECG of 21-Sep-2015 10:32, Vent. rate has increased by [address] depression has replaced ST elevation in Anterior leads T wave inversion now evident in Lateral leads Referred By: Jovany Dorsey Electronically Signed By: Guero Dao
--- NOTE | 2024-12-05 16:19 | ED.GENADULT ---
HPI - General Adult General Chief complaint: Chest Pain Stated complaint: L Shoulder andArmpit- Tingling/ Pinching Sensation Time Seen by Provider: 12/05/24 17:25 Source: patient, family (Family member at bedside), RN notes reviewed and old records reviewed Mode of arrival: ambulatory Limitations: no limitations History of Present Illness ED Provider: SYBIL Valdez HPI narrative: 24-year-old male with medical history of herpes gladitorum, chest pain presents to ED due to 5 days of acute on chronic chest pain. Patient states he has noticed a pinching pain in the L axilla that radiates down the L arm with a gnawing pain in the anterior L chest and a shooting pain of the L side of the back. Patient states the pain is intermittent and can vary in length anywhere from a few minutes to a few hours at a time. Patient states he has been experiencing chest pain for about 1 year and has been evaluated by [facility] cardiology with holter monitor and stress test with negative findings. Patient states despite negative findings chest pain persisted and he is frusterated he has not gotten any answers for etiology. Patient states he called PCP yesterday for concerns of chest pain as the pain in the axilla is new for him, provider encouraged him to come to ED for further evaluation. MD complaint: L sided intermittent chest pain with pinching L axilla pain Related Data Previous Rx's ?Medication ?Instructions ?Recorded valacyclovir 1 gram tablet 1,000 mg PO BID 10 days #20 tabs 11/27/24 Allergies Allergy/AdvReac Type Severity Reaction Status Date / Time No Known Allergies Allergy Verified 12/05/24 16:20 Review of Systems Review of Systems: CONST: Negative for fever, body aches and chills. HENT: Negative for neck pain/stiffness, headache, congestion, sore throat, swelling. EYES: Negative for discharge/pain or vision changes. RESP: Negative for cough/hemoptysis and shortness of breath. CV: Negative difficulty breathing, palpitations. POS gnawing L sided chest pain, with pinching pain of the L axilla radiating down L arm ABD: Negative pain, nausea, vomiting. : Negative increase frequency, dysuria, blood in urine or stool. MUSC: Negative for muscle aches, edema. SKIN: Negative rash, lesions/sores. NEURO: Negative headache, dizziness, weakness. Yes all other systems are reviewed and are negative [facility] Past Medical History Medical History (Updated 12/06/24 @ 00:01 by Morgan Morillo) Alcohol abuse Chest pain Herpes gladiatorum Cyst of epididymis Social History Social History Housing: Apartment Patient Tobacco Use Status: Former Tobacco user Years Smoked: less than a year Smoked in Last 30 Days: No e-Cigarette/Vaping Use: Former Use Use of substances other than those prescribed or required for medical reasons: No Advance Directives: No Advance Directives Information Provided: No service: No Current occupational status: employed Current occupation: [employer] Physical Exam ED Vital Signs: Vital Signs - 24 hr 12/05/24 16:15 12/05/24 18:50 12/05/24 20:42 Temperature 97.8 F 98.6 F Pulse Rate 78 66 66 Respiratory Rate 18 20 20 Blood Pressure 153/79 H 144/88 H 144/88 H Pulse Oximetry 97 Oxygen Delivery Method Room Air Room Air BMI result Body Mass Index 35.4 GENERAL APPEARANCE: ?AxOx4, generally well-appearing, no acute distress. HEENT: ?NC, AT. MMM. EOMI, clear conjunctiva, oropharynx clear. NECK: ?Supple without lymphadenopathy.? No stiffness or restricted ROM. HEART:? Normal rate and regular rhythm, normal S1/S1, no m/r/g. No TTP over the chest wall, I am unable to produce pain on physical exam LUNGS:? CTAB, moving air well. No crackles or wheezes are heard. ABDOMEN: ?Soft, nontender, nondistended with good bowel sounds heard. BACK: No CVAT, no obvious deformity. EXTREMITIES: ?Without cyanosis, clubbing or edema. Strength 5/5 of upper and lower extremities, full ROM of L arm, no pain to palpation of the L axilla, no rashes or overlying skin changes. NEUROLOGICAL: ?Grossly nonfocal. Alert and oriented, moving all 4 extremities. Observed to ambulate with normal gait. Skin: ?Warm and dry without any rash. Course Course Course Narrative: RME: 24-year-old male presents to ED for left-sided shoulder pain radiating to the arm And chest for the past couple of days. patient has had this in the past. patient states no trauma. labs, EKG, xray ordered Medical Decision Making Medical Decision Making MDM Narrative: 24-year-old male with medical history of herpes gladitorum, chest pain presents to ED due to 5 days of acute on chronic chest pain. Patient states he has noticed a pinching pain in the L axilla that radiates down the L arm with a gnawing pain in the anterior L chest and a shooting pain of the L side of the back. Patient states the pain is intermittent and can vary in length anywhere from a few minutes to a few hours at a time. Has been evaluated by [facility] cardiology with negative holter monitor and stress test evaluations. Chest pain has been persistent despite negative tests. Patient with L axilla pain today that differs from his normal experienced chest pain. Chest pain is not associated with nausea, diaphoresis, lightheadedness or dizziness. Patient states there is no exacerbating or relieving factors. Was encouraged to come to ED by PCP today. Denies SOB, difficulty breathing VS on initial observation-BP 144/88, pulse rate of 66, respiratory rate of 20, afebrile with oral temp of 97.8?, O2 saturation 97% on room air. On physical exam cardiac exam with normal rate and regular rhythm, normal S1/S1, no m/r/g. No TTP over the chest wall, I am unable to produce pain. Strength 5/5 of upper and lower extremities, full ROM of L arm, no pain to palpation of the L axilla, no rashes or overlying skin changes. EKG reveals normal sinus rhythm with non ischemic, non specific, mild ST depressions in V3-V6, no significant ST-elevation, troponins x2 negative <2.7- less likely ACS Labs without leukocytosis/leukopenia, H&H stable without evidence of anemia, elevated ALT of 61, no electrolyte abnormalities. CXR and XR L shoulder negative for acute findings. Patients chest pain had resolved by the time I evaluated him. Patient states he has been seen at [facility] with negative Holter monitor, stress test. Labs without leukocytosis, EKG without significant ST-elevation, troponins x2 negative at <2.7 with resolved symptoms. Patient is hypertensive at 144/88, when discussing this with the patient he feels that his BP is elevated due to stress of being in the department. When discussing his father who is at the bedside asks if the pain could be caused by pinched nerve. 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 Patient with negative lift off test, and no pain of the shoudler when ranging. 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 I will place referral [place] [facility] [place]. I counseled patient to follow up with his PCP this week. I counseled patient on strict return precautions. Patient feels comfortable to go home for self care and is in agreement with the plan. Differential Diagnosis Differential Diagnoses: The differential diagnosis associated with the presentation includes ACS Pericarditis pneumothorax muscle strain atypical chest pain Admission/Observation Consideration of admission/observation: Escalation of care including admission/observation considered Lab Data MDM Lab Attestation statement: I reviewed the patient's lab results. 12/05/24 17:08 12/05/24 17:08 Labs: Lab Results 12/05/24 12/05/24 Range/Units 17:08 18:53 WBC 6.3 (4.8-10.8) X10*3/uL RBC 5.02 (4.60-5.80) X10*6/uL Hgb 15.3 (14.0-18.0) g/dl Hct 44.2 (42.0-52.0) % MCV 88.0 (80.0-98.0) fL MCH 30.5 (27.0-33.0) pg MCHC 34.6 (31.0-36.0) g/dl RDW 11.9 (11.0-16.0) % Plt Count 217 (160-400) X10*3/uL MPV 10.9 (9.4-12.4) fL Immature Gran % (Auto) 0.5 H (0.0-0.4) % Neut % (Auto) 57.4 (45-73) % Lymph % (Auto) 31.4 (20-40) % [place] % (Auto) 7.6 (2-11) % Eos % (Auto) 2.5 (0-4) % Baso % (Auto) 0.6 (0-2) % Lymph # (Auto) 2.0 (1.2-4.9) X10*3/uL [place] # (Auto) 0.5 (0.1-1.2) X10*3/uL Eos # (Auto) 0.2 (0.0-0.4) X10*3/uL Baso # (Auto) 0.0 (0.0-0.2) X10*3/uL Abs Immat Gran (auto) 0.03 (0.00-0.03) X10*3/uL Absolute Neuts (auto) 3.6 (2.0-8.3) x10*3/uL Absolute Nucleated RBC 0.000 (0.0-0.012) X10*3/uL Nucleated RBC % (auto) 0.0 (0.0-0.2) /100WBC Sodium 142 (135-145) mmol/L Potassium 4.2 (3.3-5.1) mmol/L Chloride 106 (96-108) mmol/L Carbon Dioxide 28 (22-29) mmol/L Anion Gap 12 (12-20) BUN 15 (9-16) mg/dL Creatinine 1.06 (0.5-1.4) mg/dL Estim Creat Clear Calc 136.2 Estimated GFR > 60 Random Glucose 102 (60-115) mg/dL Calcium 9.7 (8.4-10.2) mg/dL Total Bilirubin 0.3 (0.0-1.0) mg/dL AST 30 (5-37) U/L ALT 61 H (0-40) U/L Alkaline Phosphatase 61 (39-117) U/L Troponin I High Sens < 2.7 < 2.7 (<3.5-35.0) ng/L NT-Pro-B Natriuret Pep 56.4 (<300) pg/mL Total Protein 7.9 (6.5-8.0) g/dL Albumin 4.9 (3.5-5.0) g/dL Independent Interpretation I performed an independent interpretation of an: EKG and Plain X-Ray Interpretation: EKG reveals normal sinus rhythm, with mild nonischemic ST depressions in V3 through V6, without significant ST elevation, prolonged QT Vent. Rate : 83 BPM Atrial Rate : 83 BPM P-R Int : 154 ms QRS Dur : 86 ms QT Int : 354 ms P-R-T Axes : 30 0 46 degrees QTcB Int : 415 ms Normal sinus rhythm Nonspecific T wave abnormality Abnormal ECG When compared with ECG of 21-Sep-2015 10:32, Vent. rate has increased by [address] depression has replaced ST elevation in Anterior leads T wave inversion now evident in Lateral leads I personally interpreted the XR L shoulder which was negative for acute findings, I agree with the radiologist's interpretation I interpreted the CXR which was negative for cardiomegaly, pneumothorax, pleural effusion, pulmonary edema, or acute cardiopulmonary findings, I agree Radiology Impression Discussion of test interpretation with radiology: I have reviewed the radiologist's reading. Radiologist Impression: XR L shoulder FINDINGS: Normal bone mineralization. No fracture, dislocation, or suspicious bone lesion. Normal alignment. The glenohumeral joint is normal. The AC joint is normal. There is a type II acromion. No undersurface spurring. The subacromial space is preserved. Remainder of the soft tissue and bony structures appear normal. XR/XR shoulder LT min 2V IMPRESSION: Normal left shoulder. Electronically signed by: Jon Howard MD 12/05/2024 04:58 PM EDT Dictated By: Jon Howard MD Signed By: <Electronically signed by Jon Howard MD in OV> 12/05/24 1728 CXR FINDINGS: The cardiac, hilar, and mediastinal contours are normal. The lungs are clear bilaterally. No pneumothorax or effusion. No focal osseous or soft tissue abnormality. XR/XR chest 1V IMPRESSION: Normal chest. Electronically signed by: Jon Howard MD 12/05/2024 04:58 PM EDT Dictated By: Jon Howard MD Signed By: <Electronically signed by Jon Howard MD in OV> 12/05/24 8011 Independent Historian Clinical information obtained from an independent historian. History obtained from or confirmed by: Parent (Father at bedside corroborating history) External Record Review External record reviewed: Inpatient record, Office record and Outpatient record Chronic Conditions Patient?s care impacted by: Other (Herpes gladiatorium, chronic chest pain) Discharge Plan Discharge Clinical Impression: Atypical chest pain Patient Disposition: Home, Self-Care Additional Instructions: You were evaluated in the emergency department today for chest pain. Your EKG today showed normal sinus rhythm, without emergent ST elevations, your troponins which is an enzyme the heart gives off when under stress or damage were both undetectable today. The x-ray of the shoulder was negative, the x-ray of the chest was negative for any cardiopulmonary findings. Your lab work was reassuring as there was no significant elevation of white blood cell count showing infection. I was unable to find the reason of your chest pain today, please follow up with [facility] for further evaluation and management of your chest pain. I also encourage you to follow up with your primary care doctor this week. Please return to the emergency department if you experience fevers over 100.4?, worsening chest pain, shortness of breath, difficulty breathing, weakness, lightheadedness, dizziness, chest pain that is associated with sweating, nausea or vomiting, chest pain that radiates up into the arm or jaw or back, or any new/worsening/concerning symptoms. Prescriptions: No Action valacyclovir 1 gram tablet 1,000 mg PO BID 10 Days Qty: 20 8RF Referrals: [facility] [Provider Group] Interventions: ED Discharge Assessment Last Done: 12/05/24 20:42 Discharge Date/Time: 12/05/24 20:42 Print Language: Azeri
[2024-12-05 17:13] LABS: MANUAL DIFF FLAG NO
[2024-12-05 17:24] LABS: Hematocrit 44.2 % (42.0-52.0); Hemoglobin 15.3 g/dl (14.0-18.0); Imm Gran Abs Auto 0.03 X10*3/uL (0.00-0.03); Imm Gran Pct Auto 0.5 % (0.0-0.4); Lymphocytes Absolute Auto 2.0 X10*3/uL (1.2-4.9); Mean Corpuscular HGB Conc 34.6 g/dl (31.0-36.0); Mean Corpuscular Hemoglobin 30.5 pg (27.0-33.0); Mean Corpuscular Volume 88.0 fL (80.0-98.0); NRBC Abs Auto 0.000 X10*3/uL (0.0-0.012); NRBC Pct Auto 0.0 /100WBC (0.0-0.2); Platelet Count 217 X10*3/uL (160-400); Red Blood Count 5.02 X10*6/uL (4.60-5.80); White Blood Count 6.3 X10*3/uL (4.8-10.8)
[2024-12-05 17:36] LABS: NT Pro B Type Natriuretic Pept 56.4 pg/mL (<300)
[2024-12-05 17:49] LABS: Alanine Aminotransferase 61 U/L (0-40); Albumin Level 4.9 g/dL (3.5-5.0); Anion Gap 12 (12-20); Aspartate Amino Transferase 30 U/L (5-37); Blood Urea Nitrogen 15 mg/dL (9-16); Calcium 9.7 mg/dL (8.4-10.2); Carbon Dioxide 28 mmol/L (22-29); Chloride 106 mmol/L (96-108); Creatinine Clr Calc Pharmacy 136.2; Estimated Glomerular Filt Rate > 60; Potassium 4.2 mmol/L (3.3-5.1); Sodium 142 mmol/L (135-145); Total Protein 7.9 g/dL (6.5-8.0)
[2024-12-05 17:50] LABS: Troponin-I High Sensitivity < 2.7 ng/L (<3.5-35.0)
[2024-12-05 17:57] LABS: Alkaline Phosphatase 61 U/L (39-117)
--- OUTSIDE RECORDS SUMMARY | 2024-12-05 18:37 | XMS_ITS | Encounter Summary ---
Author Organization [facility] Address [address] [place] [id number] Phone Care Team Providers Care Saw Tailer Name Role Phone Unavailable Primary Care Provider Unavailabl e Encounter Details Date Type Department Care Team (Late st Contact Info) Description 10/05/2016 Conversion Encounter [facility] - [address] [id number] Social History Tobacco Use Types Packs/Day Years Used Date Smoking Tobacco: Never Comments:Never smoker Sex and Gender Information Value Date Recorded Sex Assigned at Not on file Legal Sex Male 5:16 PM EDT Gender Identity Not on file Sexual Orientation Not on file documented as of this encounter Plan of Treatment Not on file documented as of this encounter Visit Diagnoses Not on filedocumented in this encounter
--- OUTSIDE RECORDS SUMMARY | 2024-12-05 18:37 | XMS_ITS | Clinical Summary ---
Author Organization [facility] Address [address] [place], [place] [id number] Phone Care Team Providers Care Rental Agent Name Role Phone Unavailable Primary Care Provider Unavailabl e Allergies No known active allergies Medications clobetasol 0.05 % gelIndications:C ontact dermatitis, unspecified contact dermatitis type, unspecified trigger Apply bid to rash 50 g 7 Active valACYclovir (VALTREX) 1 G tabletIndication s:Herpes gladiatorum At beginning of outbreak of Herpes Gladiatorum rash take 1 tab po bid x 5 days 10 tablet 4 7 Active Active Problems Problem Noted Date Diagnosed Date Herpes gladiatorum 02/15/2017 Rash 02/14/2017 Contact dermatitis 02/02/2017 Immunizations Immunization Administration Dates Next Due DTaP 5 02/10/2004, 1,05/27/1999, 000,01/07/1999 HPV Vaccine 9 Valent 08/14/2014 HPV, Quadrivalent 07/24/2013,01/18/2012 Hep A, ped/adol 08/14/2014,07/24/2013 Hep B, ped/adol 05/22/2000,08/22/1999,05/27/1999 Hib (PRP-T) 02/22/2000, 0,03/15/1999, 999 IPV 02/10/2004, 1,03/15/1999, 999 MMR 02/10/2004,02/22/2000 Meningococcal Conj (Menactra) MCV4P 08/31/2016,0 11/16/2011 Pneumococcal Conjugate 05/22/2000,02/22/2000 Tdap 11/16/2011 Varicella 08/06/2007,01/07/2001 Family History Relation Name Status Comments Brother Alive Brother: Alive and well Cousin Cousin: autoimm une disorder Father Father: Hyperte nsion, Diabetes mellitus Maternal Grandmother Materna l aunt: Rheumatoid arthritis Mother Alive Mother: Asthma Other 1 [address]: St rabismus/amblyopia Other 2 Aunt: Asthma Sister Alive Sister: Alive a nd well Social History Tobacco Use Types Packs/Day Years Used Date Smoking Tobacco: Never Smokeless Tobacco: Never Comments:Never smoker Sex and Gender Information Value Date Recorded Sex Assigned at Not on file Legal Sex Male 5:16 PM EDT Gender Identity Not on file Sexual Orientation Not on file Last Filed Vital Signs Vital Sign Reading Time Taken Comments Blood Pressure 125/75 09/06/2017 9:05 AM EDT Pulse 69 09/06/2017 9:05 AM EDT Temperature 36.6 C (97.9 F) 02/14/2017 3:16 PM EST Respiratory Rate - - Oxygen Saturation - - Inhaled Oxygen Concentration - - Weight 95.4 kg (210 lb 6.4 oz) 09/06/2017 9:05 A M EDT Height 180.3 cm (5' 11 ) 09/06/2017 9:05 AM EDT Body Mass Index 29.34 09/06/2017 9:05 AM EDT Plan of Treatment Health Maintenance Due Date Last Done Comments DTaP,Tdap,and Td Vaccines (7 - Td or Tdap) 11/15/2021 11/16/2011, 02/10/2004, 05/22/2000, Additional history exists Influenza Vaccines (#1) 2024 COVID-19 Vaccine ( season) 2024 HIB Vaccines Completed 02/22/2000, 08/1999, 03/15/1999, Additional history exists Hepatitis B Vaccines Completed 05/22/2000, 08/22/1999, 05/27/1999 Pneumococcal Vaccine Completed 05/22/2000, 02/21/19 IPV Vaccines Completed 02/10/2004, 04/2000, 03/15/1999, Additional history exists MMR Vaccines Completed 02/10/2004, 02/22/2000 Varicella Vaccines Completed 08/06/2007, 01/07/2001 HPV Vaccines Completed 08/14/2014, 06/2013, 01/18/2012 Hepatitis A Vaccines Completed 08/14/2014, 07/25/19 14 Meningococcal Vaccine Completed 08/31/2016, 012 Men B Vaccine Aged Out No longer neha pugh based on patient's age to complete this topic Insurance [employer] [place] [id number]
--- OUTSIDE RECORDS SUMMARY | 2024-12-05 18:37 | XMS_ITS | Clinical Summary ---
Author Organization [facility] Address [address] [facility] [address] [place] [phone] Phone Care Team Providers Care Archivist Military History Name Role Phone Pcp, Unknown Primary Care Provider Unavailabl e Allergies No known active allergies Medications No known medications Active Problems No known active problems Encounters Date Type Department Care Team Description 11/24/2024 10:39 PM EDT - 11/25/2024 12:13 AM EDT Emergency [facility] [address] [place] [address] Rayray Clark, DO Discharge Disposition: Home or Self Care from Last 3 Months Social History Tobacco Use Types Packs/Day Years Used Date Smoking Tobacco: Former Cigarettes Smokeless Tobacco: Never Education Answer Date Recorded Are you interested in more education? Not on sindy e 01/14/2024 Are you concerned about learning? Not on file 01/14/2024 No 01/14/2024 No 01/14/2024 Food Answer Date Recorded Within the past 6 months we worried whether our food would run out before we got money to buy more. Never True 11/24/2024 Within the past 6 months the food we bought just didn't last and we didn't have enough money to get more. Never True Residential Stability Answer Date Recor ded What is your housing situation today? I have ras sing 11/24/2024 How many times have you move d in the past 12 months? Zero (I did not move) 11/24/2024 Paying for Meds Answer Date Recorded Do you have trouble paying for medicines? No 11/24/2024 Paying Utility Bills Answer Date Record ed Do you have trouble paying your heating or elect ricity bill? No 11/24/2024 Transportation Answer Date Recorded Has the lack of transportati on kept you from medical appointments or from getting medications? No 11/24/2024 Digital Access Answer Date Recorded No 11/24/2024 Yes 11/24/2024 Do you have reliable internet access at home? Ye s 11/24/2024 Do you have a device (e.g., phone, tablet, computer) with a working camera? Yes 11/24/2024 Intimate Partner Violence Answer Date R ecorded Are you denied basic needs s uch as food, clothing, or medical care? No 11/24/2024 In the past 12 months have y ou been in a relationship with a person who hurts, threatens, or tries to control you? No 11/24/2024 Are you denied basic needs s uch as food, clothing, or medical care? No 11/24/2024 In the past 12 months have y ou been in a relationship with a person who hurts, threatens, or tries to control you? No 11/24/2024 Sex and Gender Information Value Date Recorded Sex Assigned at Male 01/14/2024 1:13 PM EST Legal Sex Male 11:51 AM EST Gender Identity Male 01/14/2024 1:13 PM EST Sexual Orientation Straight 01/14/2024 1: 13 PM EST Last Filed Vital Signs Vital Sign Reading Time Taken Comments Blood Pressure 128/78 11/24/2024 9:18 PM EDT Pulse 72 11/24/2024 9:18 PM EDT Temperature 36.7 C (98 F) 11/24/2024 9:18 PM EDT Respiratory Rate 16 11/24/2024 9:18 PM EDT Oxygen Saturation 98% 11/24/2024 9:18 PM EDT Inhaled Oxygen Concentration - - Weight 117.9 kg (260 lb) 11/24/2024 6:09 PM EDT Height 180.3 cm (5' 11 ) 11/24/2024 6:09 PM EDT Body Mass Index 36.26 11/24/2024 6:09 PM EDT Plan of Treatment Health Maintenance Due Date Last Done Comments DEPRESSION SCREENING 2010 SMOKING Hx and SMOKELESS TOBACCO SCREENING 11/18/2011 HEPATITIS C SCREENING 2016 HIV ONE-TIME SCREENING (18-65 YEARS) 2016 Adult Td,Tdap Booster 11/15/2021 11/16/2011 INFLUENZA VACCINE (#1) 2024 COVID-19 VACCINE ( season) 2024 02/23/2021, 07/20/2020, 06/29/2020 HIB VACCINES Completed 02/22/2000, 08/1999, 03/15/1999, Additional history exists PNEUMOCOCCAL VACCINES (0-49 years) Aged Out 05/22/2000, 05/22/2000, 02/22/2000 No longer eligible based on patient's age to complete this topic HEPATITIS A VACCINES Completed 08/14/2014, 07/25/19 14 HPV VACCINES Completed 08/14/2014, 06/2013, 01/18/2012 MENINGOCOCCAL VACCINES (ACWY) Completed 08/31/2016, 11/16/2011 MENINGOCOCCAL VACCINES (B) Aged Out N o longer eligible based on patient's age to complete this topic Medical Devices Not on file Procedures Procedure Name Priority Date/Time Associated Diagnosis Comments TROPONIN STAT 11/24/2024 8:02 PM EDT TROPONIN STAT 11/24/2024 7:01 PM EDT BASIC METABOLIC PANEL STAT 11/24/2024 7:01 PM EDT CBC AND DIFFERENTIAL STAT 11/24/2024 7:01 PM EDT XR CHEST PA AND LATERAL 2 VIEWS Routine 11/24/2024 6:47 PM EDT ECG 12-LEAD STAT 11/24/2024 6:15 PM EDT from Last 3 Months Results * Troponin (11/24/2024 8:02 PM EDT) Only the most recent of2 resultswithin the time period is included. Troponin-T, HS Gen5 <6 0 - 14 ng/L [facility] Blood 11/24/2024 8:02 PM EDT 11/24/2024 8:04 PM EDT us Win Mesa MD LAB BLOOD ORDERABLES Fin al Result [facility] [address] [place], [place] [id number] * (ABNORMAL) CBC and differential (11/24/2024 7:01 PM EDT) WBC 6.34 4.00 - 11.00 K/uL [facility] RBC 5.06 4.50 - 5.90 M/uL [facility] HGB 15.3 13.5 - 17.5 g/dL [facility] HCT 45.2 41.0 - 53.0 % [facility] PLT 191 150 - 450 K/uL [facility] MCV 89.3 80.0 - 100.0 fL [facility] MCH 30.2 27.0 - 31.0 pg [facility] MCHC 33.8 32.0 - 36.0 g/dL [facility] RDW 11.9 11.5 - 14.5 % [facility] MPV 10.9 8.4 - 12.0 fL [facility] NRBC 0.00 0.00 /100 WBCs [facility] ABSOLUTE NRBC 0.00 0.00 K/uL [facility] DIFF METHOD Auto [facility] NEUTS 45.8(L) 48.0 - 76.0 % [facility] LYMPHS 42.4(H) 18.0 - 41.0 % [facility] MONOS 7.7 4.0 - 11.0 % [facility] EOS 3.2 0.0 - 5.0 % [facility] BASOS 0.6 0.0 - 1.5 % [facility] Granulocytes, immature (%) 0.3 0.0 - 0.9 % [facility] ABSOLUTE NEUTS 2.90 1.92 - 7.60 K/uL [facility] ABSOLUTE LYMPHS 2.69 0.72 - 4.10 K/uL [facility] ABSOLUTE MONOS 0.49 0.16 - 1.10 K/uL [facility] ABSOLUTE EOS 0.20 0.00 - 0.50 K/uL [facility] ABSOLUTE BASOS 0.04 0.00 - 0.15 K/uL [facility] Granulocytes, immature 0.02 0.00 - 0.09 K/uL [facility] Blood 11/24/2024 7:01 PM EDT 11/24/2024 7:06 PM EDT us Win Mesa MD LAB BLOOD ORDERABLES Fin al Result Performing Organization Address [facility] Co de Phone Number [address] [phone] * Basic metabolic panel (11/24/2024 7:01 PM EDT) SODIUM 140 133 - 146 mmol/L [facility] CHLORIDE 102 96 - 108 mmol/L [facility] POTASSIUM 4.1 3.3 - 5.1 mmol/L [facility] CO2 27 21 - 35 mmol/L [facility] BUN 11 6 - 19 mg/dL [facility] CREATININE 1.00 0.5 - 1.5 mg/dL [facility] GLUCOSE 93 70 - 99 mg/dL [facility] CALCIUM 9.4 8.4 - 10.3 mg/dL [facility] EGFR 106 >59 mL/min/1.7 3m2 [facility] Comment:Estimated glomerular filtration rate calculated using the CKD-EPI refit equation. ANION GAP 15 10 - 20 mmol/L [facility] Blood 11/24/2024 7:01 PM EDT 11/24/2024 7:06 PM EDT us Win Mesa MD LAB BLOOD ORDERABLES Fin al Result Performing Organization Address [facility] Co de Phone Number [address] [phone] * XR CHEST PA AND LATERAL 2 VIEWS (11/24/2024 6:47 PM EDT) Anatomical Region Laterality Modality Chest Computed Radiogr aphy 11/24/2024 8:46 PM EDT Impressions 11/24/2024 9:30 PM EDT No acute abnormality. ATTESTATION: I, Lasha Littlejohn as teaching physician, have reviewed the images for this case and if necessary edited the report originally created by Madeleine Rodrigues MD. Narrative 11/24/2024 9:30 PM EDT XR CHEST PA AND LATERAL 2 VIEWS Referring clinician's provided indication for this examination in [facility]: Pain COMPARISON: XR CHEST PA AND LATERAL 2 VIEWS FINDINGS: Devices/Tubes/Lines: None. Lungs: No focal consolidation or pulmonary edema. Pleura: No pleural effusion or pneumothorax. Heart/Mediastinum: Cardiac and mediastinal silhouettes are within normal limits. Bones/Soft Tissues: No acute osseous abnormality. Procedure Note Lasha Littlejohn MD - 11/24/2024 XR CHEST PA AND LATERAL 2 VIEWS Referring clinician's provided indication for this examination in [facility]:Pain COMPARISON: XR CHEST PA AND LATERAL 2 VIEWS FINDINGS: Devices/Tubes/Lines: None. Lungs: No focal consolidation or pulmonary edema. Pleura: No pleural effusion or pneumothorax. Heart/Mediastinum: Cardiac and mediastinal silhouettes are within normallimits. Bones/Soft Tissues: No acute osseous abnormality. IMPRESSION: No acute abnormality. ATTESTATION: I, Lasha Littlejohn as teaching physician, have reviewed theimages for this case and if necessary edited the report originally createdby Madeleine Rodrigues MD. Win Mesa MD IMG XR CHEST Final Re sult * ECG 12-LEAD (11/24/2024 6:15 PM EDT) Ventricular Rate EKG/MIN 51 BPM [facility] Atrial Rate 51 BPM [facility] TN Interval 140 ms [facility] QRS Duration 100 ms [facility] QT Interval 454 ms [facility] QTC Interval 418 ms [facility] P [place] 61 degrees [facility] R Wave [place] 4 degrees [facility] T Wave [place] 8 degrees [facility] 11/24/2024 6:15 PM EDT 11/25/2024 10:08 AM EDT Narrative [facility] - 11/25/2024 10:08 AM EDT Sinus bradycardia Otherwise normal ECG When compared with ECG of 14-Jan-2024 13:09, Vent. rate has decreased by 57 bpm Nonspecific T wave abnormality no longer evident in Anterior leads QT has shortened Confirmed by Venancio OSORIO ([id number]) on 11/25/2024 10:08:18 AM us Win Mesa MD ECG ORDERABLES Final Re sult [facility] from Last [address] [place] [address] [place] [address] [place] [address] Care Teams Archivist Military History Relationship Specialty Start Date End Date Pcp, Unknown PCP - General 01/14/24 Additional Source Comments The information contained in this document represents components of the legal health record. It is not the complete legal health record.[facility]
--- OUTSIDE RECORDS SUMMARY | 2024-12-05 18:37 | XMS_ITS | Encounter Summary ---
Author Organization [facility] Address [address] [place] [phone] Phone Care Team Providers Care Roll Reclaimer Name Role Phone Unavailable Primary Care Provider Unavailabl e Encounter Details Date Type Department Care Team (Late st Contact Info) Description 09/23/2015 Documentation [facility] [address] [place], [place] [phone] Family Medicine, Physician [address] [place] [address] Social History Tobacco Use Types Packs/Day Years Used Date Smoking Tobacco: Never Assessed Sex and Gender Information Value Date Recorded Sex Assigned at Not on file Legal Sex Male 5:16 PM EDT Gender Identity Not on file Sexual Orientation Not on file documented as of this encounter Plan of Treatment Not on file documented as of this encounter Visit Diagnoses Not on filedocumented in this encounter
[2024-12-05 18:50] VITALS: BP 144/88; PULSE 66; RESP 20
[2024-12-05 19:23] LABS: Troponin-I High Sensitivity < 2.7 ng/L (<3.5-35.0)
[2024-12-05 20:42] VITALS: BP 144/88; PULSE 66; RESP 20; TEMP 37
== END 2024-12-05 20:42 | disposition home or self-care (01) ==
PROVIDERS: Physician Assistant; Emergency Provider Emergency Medicine; PCP Student in an Organized Health Care Education/Training Program
DX: R07.89 Other chest pain (principal); R06.02 Shortness of breath; M25.512 Pain in left shoulder; Z79.899 Other long term (current) drug therapy; Z87.891 Personal history of nicotine dependence
CPT/HCPCS: 36415; 71045; 73030; 80053; 83880; 84484; 85025; 93005; 99283; 99284

== ENCOUNTER → 2024-12-05 16:17 | Outpatient (BNV) | payer BC, SELFPAY | PROVIDERS: Emergency Provider Emergency Medicine; PCP Student in an Organized Health Care Education/Training Program; Visit Provider Internal Medicine Cardiovascular Disease | DX: R94.31 Abnormal electrocardiogram [ECG] [EKG] (principal); M25.512 Pain in left shoulder | CPT/HCPCS: 93010 ==

== ENCOUNTER → 2024-12-05 16:18 | Outpatient (BNV) | payer BC, SELFPAY | PROVIDERS: Emergency Provider Emergency Medicine; PCP Student in an Organized Health Care Education/Training Program; Visit Provider Radiology Diagnostic Radiology | DX: M25.512 Pain in left shoulder (principal); R07.9 Chest pain, unspecified | CPT/HCPCS: 71045; 73030 ==

== ENCOUNTER 2024-12-09 14:13 | Outpatient (AMB) | payer BC, SELFPAY ==
[2024-12-09 14:17] VITALS: BP 140/80; PULSE 58; TEMP 36.4; O2SAT 99; BMI 36.0
--- NOTE | 2024-12-09 14:17 | A.OFFPC_ITS ---
Vital Signs 12/09/24 14:17 Height 5 ft 11 in Weight 258 lb BMI 36.0 BP 140/80 H Blood Pressure Location Lt brachial Position Sitting Pulse 58 Pulse Source Pulse Oximeter Temp 97.6 F Temp Source Temporal Artery Scan Pulse Oximetry (%) 99 Oxygen Delivery Method Room Air Intake Visit Reasons: tingling and numbness Intellectual Property Paralegal Required: No Accompanied by: Self / Same As Patient Allergies No Known Allergies Allergy (Verified 12/09/24 14:17) Medication List - Last Reconciled 12/09/24 by Florin Bruce MD No Known Home Meds Tobacco use date assessed: 12/09/24 Dental Screening Dental Screen Date: 12/09/24 Did you have a dental visit in the last 12 months?: Yes Did you have a dental problem in the last 6 months where you did not have access to dental care?: No HPI HPI Comments History of Present Illness Details The patient is a 24-year-old male presenting with complaints of ongoing chest pain. The chest pain has been described as atypical and affects areas such as the armpits and jaw. It occasionally radiates and extends downwards. He previously visited the emergency department where an EKG showed a sinus rhythm with nonischemic nonspecific mid ST depression from leads V3 to V6, but no significant ST elevations were noted. Troponins were negative on two occasions, which ruled out acute coronary syndrome as the likely cause. The patient expresses concern about the chest pain and its potential cardiac origin, despite multiple earlier evaluations, including by cardiology, which have returned negative results. He acknowledges past evaluations with Holter monitoring and stress tests, which did not establish a cardiac pathology. The current pain is not consistently associated with physical activity, a factor considered significant throughout his evaluations. He seeks reassurance through the possibility of future diagnostic evaluations. The patient also reported left shoulder pain, which has been persistent for years. He relates this pain possibly to an injury or muscular issue due to his wrestling activities. He notes that the shoulder pain responds to [id number] analgesics like Tylenol and ibuprofen, suggesting a muscular origin. He requests a referral to physical therapy for his shoulder pain and expresses interest in further managing the underlying issues to avoid frequent medical visits. Medical History: - History of atypical chest pain - History of left shoulder pain Medications: - Tylenol as needed for pain - Ibuprofen as needed for pain Diagnostic Results: - Labs: Troponins negative on two occasi ons - Tests: EKG showed sinus rhythm with no nischemic nonspecific mid ST depression in V3-V6, no significant ST elevations Social History: - Active wrestler, leading to potential muscular strains - No reported substance use aside from o ccasional alcohol, advised to decrease consumption [facility] Medical History (Updated 12/09/24 @ 14:52 by Florin Bruce MD) Left shoulder pain Alcohol abuse Chest pain Herpes gladiatorum Cyst of epididymis Family History (Updated 12/09/24 @ 14:27 by Preeti Jordan MA) Mother No problems noted. Father No problems noted. Social History Housing: Apartment Patient Tobacco Use Status: Former Tobacco user Years Smoked: less than a year e-Cigarette/Vaping Use: Former Use service: No Current occupational status: employed Current occupation: [employer] Cognitive needs: No Hearing needs: No Vision needs: No Questionnaire PHQ-9 Over the last 2 weeks, how often have you been bothered by any of the following problems? 1. Little interest or pleasure in doing things: not at all 2. Feeling down, depressed, or hopeless: several days (feels some anxiety sometimes) 3. Trouble falling or staying asleep, or sleeping too much: not at all 4. Feeling tired or having little energy: not at all 5. Poor appetite or overeating: not at all 6. Feeling bad about yourself - or that you are a failure or have let yourself or your family down: not at all 7. Trouble concentrating on things, such as reading the newspaper or watching television: not at all 8. Moving or speaking so slowly that other people could have noticed. Or the opposite - being so fidgety or restless that you have been moving around a lot more than usual: not at all 9. Thoughts that you would be better off or of hurting yourself in some way: not at all Total score: 1 Source: Developed by Drs. Efren Webb, Lori Duggan, Guero Kelly and colleagues, with an educational eber from [employer]. Thrive Questionnaire Date Thrive assessed: 12/09/24 I am a: Patient Within the past 12 months, did the food you bought not last and you didn't have the money to get more?: Never true Within the past 12 months, did you worry whether your food would run out before you got money to buy more?: Never true Do you have trouble paying for medicines?: No Do you have trouble getting transportation to medical appointments?: No Do you have trouble paying your heating and electricity bill?: No Do you have trouble taking care of your child, family member or friend?: No Do you have trouble with day-to-day activities such as bathing, preparing meals, shopping, managing finances, etc.?: No Are you currently unemployed and looking for a job?: No Are you interested in more education?: No THRIVE Score: 0 AUDIT C Alcohol Use Questionnaire (AUDIT-C) 1. How often do you have a drink containing alcohol?: Monthly or less 2. How many drinks containing alcohol do you have on a typical day when you are drinking?: 1 or 2 3. How often do you have six or more drinks on one occasion?: Less than monthly Total Score: 2 CHRISTA-7 AMB Questionnaire CHRISTA-7 Date CHRISTA - 7 assessed: 12/09/24 Feeling nervous, anxious, or on edge: 0 = Not at all Not being able to stop or control worryin = Not at all Worrying too much about different things: 0 = Not at all Trouble relaxin = Not at all Being so restless that it is hard to sit still: 0 = Not at all Becoming easily annoyed or irritable: 0 = Not at all Feeling afraid as if something awful might happen: 0 = Not at all Total CHRISTA-7 score (0-4 normal; 5-9 mild; 10-14 moderate; 15-21 severe): 0 Source: Developed by Drs. Efren Webb, Lori Duggan, Guero Kelly and colleagues, with an educational eber from [employer]. Review of Systems Narrative - Cardiovascular: Reports atypical chest pain; Denies palpitations - Musculoskeletal: Reports left shoulder pain, worsening with pressure - General: Denies any recent acute illnesses All systems reviewed & are unremarkable except as reviewed in HPI and above Physical exam (Primary Care) Vital Signs: Last Vital Signs Temp 97.6 F 12/09/24 14:17 Pulse 58 12/09/24 14:17 BP 140/80 H 12/09/24 14:17 Pulse Ox 99 12/09/24 14:17 Oxygen Delivery Method Room Air 12/09/24 14:17 BMI result Body Mass Index 36.0 Tobacco/Smoking Status: Tobacco use Status Tobacco use date assessed 12/09/24 12/09/24 14:18 Patient Tobacco Use Status Former Tobacco user 12/09/24 14:18 e-Cigarette/Vaping Use Former Use 12/09/24 14:18 PHQ-9: PHQ-9 Score PHQ-9: Total score 1 12/09/24 14:47 Thrive Assessment: Date of Thrive Assessment Date Thrive assessed 12/09/24 12/09/24 14:18 Narrative General: Alert and oriented, Well nourished, No acute distress. Eye: Pupils are equal, round and reactive to light, Intact accommodation, Extraocular movements are intact, Normal conjunctiva, Vision unchanged. HENT: Normocephalic, Atraumatic, Tympanic membranes are clear, Normal hearing, Oral mucosa is moist, No pharyngeal erythema, Ear canals patent. Respiratory: Lungs CTA bilaterally, No wheeze, Respirations are non-labored. Cardiovascular: Regular rate, Regular rhythm, S1 auscultated, S2 auscultated, No murmur, Good pulses equal in all extremities, Normal peripheral perfusion, No edema. Gastrointestinal: Soft, Non-tender, Non-distended, Normal bowel sounds, No organomegaly. Musculoskeletal: Normal range of motion, Normal strength, Tenderness in left shoulder, No swelling, No deformity, Normal gait. Integumentary: Warm, Dry, [place], Intact. Neurologic: Alert, Oriented, Normal sensory, Normal motor function, No focal defects, Cranial Nerves II-XII are grossly intact, Normal deep tendon reflexes. Psychiatric: Cooperative, Appropriate mood & affect, Normal judgment. Coding Level of Care Code Est Pt Level 4 (31847) Diagnoses Chest pain, unspecified type R07.9 Chest pain type: unspecified Left shoulder pain M25.512 Assessment & Plan Assessment & Plan (1) Chest pain: Comment: - Multiple EKGs and stress tests showed no significant cardiac abnormalities, troponins negative. - Discussed current findings suggesting low likelihood of acute coronary syndrome. - Ordered a stress test to reassess cardiac function under strain. Ensured patient understanding of current findings indicating low likelihood of acute coronary syndrome. Follow-up with cardiology pending stress test results. Code(s): R07.9 - Chest pain, unspecified Category: Medical Qualifiers: Chest pain type: unspecified Qualified Code(s): R07.9 - Chest pain, unspecified (2) Left shoulder pain: Comment: - Muscular strain likely due to wrestling activities. Responds well to NSAIDs. - Referral to physical therapy for shoulder strengthening and symptom man agement. Continue current pain management regimen with ynxw-vop-hcdjtwk medications. Code(s): M25.512 - Pain in left shoulder Category: Medical Plan: Health Maintenance: - Recommendation for alcohol reduction to address elevated liver enzymes Patient was informed and verbally consented to the use of an ambient scribe for clinic note documentation during this visit. Plan During today's visit, I discussed the patient's chest pain and shoulder concerns. After reviewing his history, past diagnostic results, and current symptoms, I reiterated the low likelihood of a cardiac origin for his chest pain, supported by negative troponins and EKG findings. I ordered another stress test for additional reassurance in future evaluations. For his shoulder pain, which is likely muscular in nature due to his athletic activities, I recommended physical therapy, emphasizing strengthening exercises. I have advised decreasing alcohol intake due to previous elevated liver enzyme findings. Future follow-up with cardiology contingent upon stress test outcomes was also discussed, providing the patient reassurance and a comprehensive management plan. Orders: Orders PT Evaluation and Treatment Today M25.512 - Pain in left shoulder CA stress test Today R07.9 - Chest pain, unspecified Referrals Cardiology Referral R07.9 - Chest pain, unspecified Patient Instructions: - Follow up with the stress test as scheduled and await results. - Attend physical therapy sessions for shoulder pain management. - Use Tylenol and ibuprofen as needed for pain relief. - Reduce alcohol consumption to aid liver health. - Maintain a healthy lifestyle and exercise routine, avoiding strain on the shoulder. - Contact the office if new symptoms develop or if there are concerns about cu rrent pain.
--- OUTSIDE RECORDS SUMMARY | 2024-12-09 19:11 | XMS_ITS | Clinical Summary ---
Author Organization [facility] Address [address] [place], [place] [phone] Phone Care Team Providers Care Pump House Operator Name Role Phone Unavailable Primary Care Provider [...] patient's age to complete this topic Insurance [employer] SHARON BACH [id number]
--- OUTSIDE RECORDS SUMMARY | 2024-12-09 19:11 | XMS_ITS | Encounter Summary ---
Author Organization [facility] Address [address] [place] [address] Phone Care Team Providers Care Orthopedic Nurse Practitioner Name Role Phone Unavailable Primary Care Provider Unavailabl e Encounter Details Date Type Department Care Team (Late st Contact Info) Description 09/23/2015 Documentation [facility] [address] [place], [place] [id number] Family Medicine, Physician [address] [place] [address] Social History Tobacco Use Types Packs/Day Years [...]
--- OUTSIDE RECORDS SUMMARY | 2024-12-09 19:11 | XMS_ITS | Clinical Summary ---
Author Organization [facility] Address [address] [place] [phone] Phone Care Team Providers Care Sanitizer Name Role Phone Pcp, Unknown Primary Care Provider Unavailabl e Allergies No known active allergies Medications No known medications Active Problems No known active problems Encounters Date Type Department Care Team Description 11/24/2024 10:39 PM EDT - 11/25/2024 12:13 AM EDT Emergency [facility] [address] [place] [address] Rayray Clark, DO Discharge Disposition: Home or [...] HS Gen5 <6 0 - 14 ng/L [facility] Blood 11/24/2024 8:02 PM EDT 11/24/2024 8:04 PM EDT us Win Mesa MD LAB BLOOD ORDERABLES Fin al Result [facility] [address] [place], [place] [id number] * (ABNORMAL) CBC and differential (11/24/2024 7:01 PM EDT) WBC 6.34 4.00 - 11.00 K/uL [facility] RBC 5.06 4.50 - 5.90 M/uL [facility] HGB 15.3 13.5 - 17.5 g/dL [facility] HCT 45.2 41.0 - 53.0 % [facility] PLT 191 150 - 450 K/uL [facility] MCV 89.3 80.0 - 100.0 fL [facility] MCH 30.2 27.0 - 31.0 pg [facility] MCHC 33.8 32.0 - 36.0 g/dL [facility] RDW 11.9 11.5 - 14.5 % [facility] MPV 10.9 8.4 - 12.0 fL [facility] NRBC 0.00 0.00 /100 WBCs [facility] ABSOLUTE NRBC 0.00 0.00 K/uL [facility] DIFF METHOD Auto [facility] NEUTS 45.8(L) 48.0 - 76.0 % [facility] LYMPHS 42.4(H) 18.0 - 41.0 % [facility] MONOS 7.7 4.0 - 11.0 % [facility] EOS 3.2 0.0 - 5.0 % [facility] BASOS 0.6 0.0 - 1.5 % [facility] Granulocytes, immature (%) 0.3 0.0 - 0.9 % [facility] ABSOLUTE NEUTS 2.90 1.92 - 7.60 K/uL [facility] ABSOLUTE LYMPHS 2.69 0.72 - 4.10 K/uL [facility] ABSOLUTE MONOS 0.49 0.16 - 1.10 K/uL [facility] ABSOLUTE EOS 0.20 0.00 - 0.50 K/uL [facility] ABSOLUTE BASOS 0.04 0.00 - 0.15 K/uL [facility] Granulocytes, immature 0.02 0.00 - 0.09 K/uL [facility] Blood 11/24/2024 7:01 PM EDT 11/24/2024 7:06 PM EDT us Win Mesa MD LAB BLOOD ORDERABLES Fin al Result Performing Organization Address [facility] Co de Phone Number [address] [address] * Basic metabolic panel (11/24/2024 7:01 PM EDT) SODIUM 140 133 - 146 mmol/L [facility] CHLORIDE 102 96 - 108 mmol/L [facility] POTASSIUM 4.1 3.3 - 5.1 mmol/L [facility] CO2 27 21 - 35 mmol/L [facility] BUN 11 6 - 19 mg/dL [facility] CREATININE 1.00 0.5 - 1.5 mg/dL [facility] GLUCOSE 93 70 - 99 mg/dL [facility] CALCIUM 9.4 8.4 - 10.3 mg/dL [facility] EGFR 106 >59 mL/min/1.7 3m2 [facility] Comment:Estimated glomerular filtration rate calculated using the CKD-EPI refit equation. ANION GAP 15 10 - 20 mmol/L [facility] Blood 11/24/2024 7:01 PM EDT 11/24/2024 7:06 PM EDT us Win Mesa MD LAB BLOOD ORDERABLES Fin al Result Performing Organization Address [facility] Co de Phone Number [address] [phone] * XR CHEST PA AND LATERAL 2 [...] clinician's provided indication for this examination in [facility]: Pain COMPARISON: XR CHEST PA AND LATERAL 2 VIEWS FINDINGS: Devices/Tubes/Lines: None. Lungs: No focal consolidation or pulmonary edema. Pleura: No pleural effusion or pneumothorax. Heart/Mediastinum: Cardiac and mediastinal silhouettes are within normal limits. Bones/Soft Tissues: No acute osseous abnormality. Procedure Note Lasha Littlejohn MD - 11/24/2024 XR CHEST PA AND LATERAL 2 VIEWS Referring clinician's provided indication for this examination in [facility]:Pain COMPARISON: XR CHEST PA AND LATERAL 2 [...] BPM [facility] Atrial Rate 51 BPM [facility] DE Interval 140 ms [facility] QRS Duration 100 ms [facility] QT Interval 454 ms [facility] QTC Interval 418 ms [facility] P [place] 61 degrees [facility] R Wave [place] 4 degrees [facility] T Wave [place] 8 degrees [facility] 11/24/2024 6:15 PM EDT [...] sult [facility] from Last [address] [place] [place] [address] [place] [address] [place] [address] Care Teams Sanitizer Relationship Specialty Start Date End Date Pcp, Unknown PCP - General 01/14/24 Additional Source Comments The information contained in this document represents components of the legal health record. It is not the complete legal health record.[facility]
--- OUTSIDE RECORDS SUMMARY | 2024-12-09 19:11 | XMS_ITS | Encounter Summary ---
Author Organization [facility] Address [address] [place] [address] Phone Care Team Providers Care Wellness Director Name Role Phone Unavailable Primary Care Provider Unavailabl e Encounter Details Date Type Department Care Team (Late st Contact Info) Description 10/05/2016 Conversion Encounter [facility] - [address] [address] Social History Tobacco Use Types Packs/Day Years [...]
== END 2024-12-09 14:47 | disposition home or self-care (01) ==
LOC: HO.HMCHD 14:14
PROVIDERS: PCP Student in an Organized Health Care Education/Training Program; Visit Provider Student in an Organized Health Care Education/Training Program
DX: R07.9 Chest pain, unspecified (principal); M25.512 Pain in left shoulder

== ENCOUNTER → 2025-01-22 08:20 | Outpatient (REF) | payer BC, SELFPAY ==
--- NOTE | 2025-01-22 08:24 | CA_ITS ---
Acquisition Time: 2025-01-22 08:18:58 Total Exercise Time: 00:10:02 Test Indications: cp Medications: see h&p Protocol: DENEEN Max HR: 169 BPM 87% of Pred: 194 BPM Max BP: 184/40 mmHG Max Work Load: 11.8 METS Exercise stress test with exercise 10 mins 2 secs of Deneen Protocol, achieving 87% MPHR, with reports of SOB, no chest pain, without any arrythmias, with normotensive response to exercise. Without any EKG changes meeting criteria for ischemia. In recovery, breathing improved and pt feeling back to baseline. Test reviewed with Dr. Guillen. Referred By: Florin Bruce Electronically Signed By: Rainer Naqvi
--- OUTSIDE RECORDS SUMMARY | 2025-01-22 08:36 | XMS_ITS | Clinical Summary ---
Author Organization [facility] Address [address] [place] [address] Phone Care Team Providers Care Shrimp Cleaner Name Role Phone Pcp, Unknown Primary Care Provider Unavailabl e Allergies No known active allergies Medications No known medications Active Problems No known active problems Encounters Date Type Department Care Team Description 11/24/2024 10:39 PM EDT - 11/25/2024 12:13 AM EDT Emergency [facility] [address] [place] [address] Rayray Clark, DO Discharge Disposition: Home or [...] 11/24/2024 7:01 PM EDT BASIC METABOLIC PANEL (BMP) STAT 11/24/2024 7:01 PM EDT CBC AND DIFFERENTIAL STAT 11/24/2024 7:01 PM EDT XR CHEST PA AND LATERAL 2 VIEWS Routine 11/24/2024 6:47 PM EDT ECG 12-LEAD STAT 11/24/2024 6:15 PM EDT from Last 3 Months Results * Troponin (11/24/2024 8:02 PM EDT) Only the most recent of2 resultswithin the time period is included. Troponin-T, HS Gen5 <6 0 - 14 ng/L [facility] Blood 11/24/2024 8:02 PM EDT 11/24/2024 8:04 PM EDT us Win Mesa MD LAB BLOOD BKR ORDERABLES Final Result [facility] [address] [place] [address] * (ABNORMAL) CBC and differential (11/24/2024 7:01 PM EDT) WBC 6.34 4.00 - 11.00 K/uL [facility] RBC 5.06 4.50 - 5.90 M/uL [facility] HGB 15.3 13.5 - 17.5 g/dL [facility] HCT 45.2 41.0 - 53.0 % [facility] PLT 191 150 - 450 K/uL [facility] MCV 89.3 80.0 - 100.0 fL [facility] MCH 30.2 27.0 - 31.0 pg [facility] MCHC 33.8 32.0 - 36.0 g/dL [facility] RDW 11.9 11.5 - 14.5 % [facility] MPV 10.9 8.4 - 12.0 fL [facility] NRBC 0.00 0.00 /100 WBCs [facility] ABSOLUTE NRBC 0.00 0.00 K/uL [facility] DIFF METHOD Auto [facility] NEUTS 45.8(L) 48.0 - 76.0 % [facility] LYMPHS 42.4(H) 18.0 - 41.0 % [facility] MONOS 7.7 4.0 - 11.0 % [facility] EOS 3.2 0.0 - 5.0 % [facility] BASOS 0.6 0.0 - 1.5 % [facility] Granulocytes, immature (%) 0.3 0.0 - 0.9 % [facility] ABSOLUTE NEUTS 2.90 1.92 - 7.60 K/uL [facility] ABSOLUTE LYMPHS 2.69 0.72 - 4.10 K/uL [facility] ABSOLUTE MONOS 0.49 0.16 - 1.10 K/uL [facility] ABSOLUTE EOS 0.20 0.00 - 0.50 K/uL [facility] ABSOLUTE BASOS 0.04 0.00 - 0.15 K/uL [facility] Granulocytes, immature 0.02 0.00 - 0.09 K/uL [facility] Blood 11/24/2024 7:01 PM EDT 11/24/2024 7:06 PM EDT us Win Mesa MD LAB BLOOD BKR ORDERABLES Final Result Performing Organization Address [facility] de Phone Number [address] [address] * Basic metabolic panel (11/24/2024 7:01 PM EDT) SODIUM 140 133 - 146 mmol/L [facility] CHLORIDE 102 96 - 108 mmol/L [facility] POTASSIUM 4.1 3.3 - 5.1 mmol/L [facility] CO2 27 21 - 35 mmol/L [facility] BUN 11 6 - 19 mg/dL [facility] CREATININE 1.00 0.5 - 1.5 mg/dL [facility] GLUCOSE 93 70 - 99 mg/dL [facility] CALCIUM 9.4 8.4 - 10.3 mg/dL [facility] EGFR 106 >59 mL/min/1.7 3m2 [facility] Comment:Estimated glomerular filtration rate calculated using the CKD-EPI refit equation. ANION GAP 15 10 - 20 mmol/L [facility] Blood 11/24/2024 7:01 PM EDT 11/24/2024 7:06 PM EDT us iWn Mesa MD LAB BLOOD BKR ORDERABLES Final Result Performing Organization Address [facility] Co de Phone Number [address] [phone] * XR CHEST PA AND LATERAL 2 [...] clinician's provided indication for this examination in [facility]: Pain COMPARISON: XR CHEST PA AND LATERAL 2 VIEWS FINDINGS: Devices/Tubes/Lines: None. Lungs: No focal consolidation or pulmonary edema. Pleura: No pleural effusion or pneumothorax. Heart/Mediastinum: Cardiac and mediastinal silhouettes are within normal limits. Bones/Soft Tissues: No acute osseous abnormality. Procedure Note Lasha Littlejonh MD - 11/24/2024 XR CHEST PA AND LATERAL 2 VIEWS Referring clinician's provided indication for this examination in [facility]:Pain COMPARISON: XR CHEST PA AND LATERAL 2 [...] the report originally createdby Madeleine Rodrigues MD. us Win Mesa MD IMG XR CHEST Final Re sult * ECG 12-LEAD (11/24/2024 6:15 PM EDT) Ventricular Rate EKG/MIN 51 BPM [facility] Atrial Rate 51 BPM [facility] TX Interval 140 ms [facility] QRS Duration 100 ms [facility] QT Interval 454 ms [facility] QTC Interval 418 ms [facility] P [place] 61 degrees [facility] R Wave [place] 4 degrees [facility] T Wave [place] 8 degrees [facility] 11/24/2024 6:15 PM EDT [...] sult [facility] from Last [address] [place] [address] [place] [address] [place] [address] [place] [address] [place] [address] [facility] Care Teams Shrimp Cleaner Relationship Specialty Start Date End Date Pcp, Unknown PCP - General 01/14/24 Additional Source Comments The information contained in this document represents components of the legal health record. It is not the complete legal health record.[facility]
--- OUTSIDE RECORDS SUMMARY | 2025-01-22 08:36 | XMS_ITS | Encounter Summary ---
Author Organization [facility] Address [address] [place] [address] Phone Care Team Providers Care Asbestos Brake Lining Finisher Helper Name Role Phone Unavailable Primary Care Provider Unavailabl e Encounter Details Date Type Department Care Team (Late st Contact Info) Description 09/23/2015 Documentation [facility] [address] [place], [place] [phone] Family Medicine, Physician [address] [place] [address] Social History Tobacco Use Types Packs/Day Years [...]
--- OUTSIDE RECORDS SUMMARY | 2025-01-22 08:36 | XMS_ITS | Clinical Summary ---
Author Organization [facility] Address [address] [place], [place] [phone] Phone Care Team Providers Care Ict Development Manager Name Role Phone Unavailable Primary Care Provider [...] patient's age to complete this topic Insurance [employer] [place] [id number]
--- OUTSIDE RECORDS SUMMARY | 2025-01-22 08:36 | XMS_ITS | Encounter Summary ---
Author Organization [facility] Address [address] [place] [phone] Phone Care Team Providers Care Patient Assessment Coordinator Name Role Phone Unavailable Primary Care Provider Unavailabl e Encounter Details Date Type Department Care Team (Late st Contact Info) Description 10/05/2016 Conversion Encounter [facility] - [address] [address] Social History Tobacco Use Types Packs/Day Years [...]
== END ==
LOC: HO.CARD 08:20
PROVIDERS: PCP Student in an Organized Health Care Education/Training Program; Visit Provider Student in an Organized Health Care Education/Training Program
DX: R07.9 Chest pain, unspecified (principal)
CPT/HCPCS: 93017

== ENCOUNTER → 2025-01-22 08:24 | Outpatient (BNV) | payer BC, SELFPAY | PROVIDERS: PCP Student in an Organized Health Care Education/Training Program | DX: R06.02 Shortness of breath (principal) | CPT/HCPCS: 93016; 93018 ==